=== PATIENT | male | born 1935 | race Caucasian/White ===

== ENCOUNTER 2022-03-01 09:26 | Emergency (ER) | payer MEDICARE, BC, SELFPAY ==
[2022-03-01 09:32] VITALS: BP 179/83; PULSE 58; RESP 18; TEMP 36.6; O2SAT 99; BMI 18.0
--- NOTE | 2022-03-01 09:59 | CRLHL7_ITS ---
For Patients: As a result of the Century Cures Act, medical imaging exams and procedure reports are released immediately into your electronic medical record. You may view this report before your referring provider. If you have questions, please contact your health care provider. INDICATION: Headache, speech issues. TECHNIQUE: Head CT without contrast. COMPARISON: CT head 01/04/2020. FINDINGS: CSF spaces: Within normal limits for age. Brain parenchyma and extra-axial spaces: There are nonspecific low attenuation white matter changes consistent with chronic microvascular disease. No sign of mass, hemorrhage, or midline shift. Calcification in the bilateral intracranial carotid arteries. Skull base and calvarium: The visualized paranasal sinuses and mastoid air cells demonstrate no acute or significant findings. The visualized orbits are grossly unremarkable. No skull fractures. IMPRESSION: No acute or significant findings. Please note that all CT scans at this facility use dose modulation, iterative reconstruction, and/or weight-based dosing when appropriate to reduce radiation dose to as low as reasonably achievable. Dictated by Emiliano Brito MD @ 03/01/2022 10:27:52 AM (Electronically Signed)
--- NOTE | 2022-03-01 10:39 | ED.NEUROSD ---
HPI - Neuro Symptoms/Deficit General Date Seen: 03/01/22 Chief Complaint: Neuro Symptoms/Altered Deficit Stated Complaint: Stroke-like symptoms, high blood pressure Time Seen by Provider: 03/01/22 09:46 Source: patient and family Mode of arrival: ambulatory Limitations: no limitations History of Present Illness HPI Narrative: Patient is a very nice 86-year-old gentleman who presents here for evaluation of an episode that occurred yesterday. Proximally 1:30 in the afternoon he was speaking with his son, he had trouble forming words, and almost sound like he was garbled in his speech. This lasted for approximately 15-20 minutes, and then resolved. He had no headache associated with this at the time, numbness tingling or weakness. He was by himself so has no idea if he had any facial features such as weakness. Last night he did have a bit of an upset stomach which is not uncharacteristic for him. He did not vomit and was only slightly nauseous. He also had a bifrontal headache which also since he fell a few years ago on the ice comes up from time to time. His daughter came to see him today to told him she should take him to the ER as he is here now. He feels asymptomatic and has no current complaints. No previous history of stroke/TIAs. Does have a history of weight loss stemming last year so. His physician is aware of it and seems to be more of a nutritional deficit as he is highly aware of any preservatives he takes. No formal history of cancer, Timing confirmed by: family member History of same: No Severity: mild Relieving factors: none Exacerbating factors: none Context: sudden onset Associated symptoms: denies other symptoms Treatments Prior to Arrival: none Related Data Home Medications Medication Instructions Recorded Confirmed lisinopril 20 mg tablet mg 03/01/22 Allergies Allergy/AdvReac Type Severity Reaction Status Date / Time No Known Drug Allergies Allergy Verified 03/01/22 09:31 Review of Systems Status of ROS: Reports: 10 or more systems reviewed and unremarkable except as noted in History and below PFSH PFS Social History Smoking Status: Former smoker What tobacco products do you use: cigarettes Smoking quit date/years: >15 years ago Do you use any of these nicotine containing products: None Second hand tobacco smoke exposure: No How often do you have a drink containing alcohol: never How often do you have six or more drinks on one occasion: Never AUDIT-C Alcohol total score: 0 Non-prescribed substance use: denies use service: No Exam Narrative: Exam Narrative: Patient is alert and oriented x3 in no apparent distress speaking to me normally very thin gentleman. His pupils were equal round reactive to light there is no evidence of nystagmus, visual del valle are normal on testing, cranial nerves 3-12 are normal with no obvious weakness of his face and he is able to whistle. His TMs are normal, mouth opening is normal, there is no lymphadenopathy anterior posterior chains and he has no carotid bruits notable with good upstrokes. He is flat, neck shows no meningismus, and range of motion is excellent. No evidence of any falls bruising or swelling along the head region. His chest is good air entry bilaterally with no wheezing crackles noted heart sounds are normal no clicks murmurs or gallops his abdomen is soft and scaphoid there is no guarding no past splenomegaly. He moves all extremities independently and well find more moves fingers nose testing are normal he is right-hand dominant. I visualized his gait pattern which seems normal. He is however what I would describe is gaunt. Const: Vital Signs, click to edit/add: Vital Signs - 24 hr 03/01/22 09:32 Temperature 97.8 F Pulse Rate [Right Pulse Oximeter] 58 L Respiratory Rate 18 Blood Pressure [Ri ght Upper Arm] 179/83 H Pulse Oximetry 99 Documenting provider has reviewed patient's vital signs: yes Course Course Hospital Course: I discussed with the patient that his CT scan showed no acute findings in also his laboratory work came back good. I do believe that he likely had but we would describe as a TIA or mini-stroke. She should take aspirin 81 mg a day. Follow-up with primary care and consideration of further testing such as carotid ultrasounds an echo. We do not need to admit him today based on the fact he is back to baseline. I also think there is a nutritional component also as he is very cachectic and encouraged him to think about seeing a dietitian. His daughter was in agreement with this. Vital Signs Vital signs: Initial Vital Signs Temperature 97.8 F 03/01/22 09:32 Temperature Source Temporal Artery Scan 03/01/22 09:32 Pulse Rate 58 L 03/01/22 09:32 Respiratory Rate 18 03/01/22 09:32 Blood Pressure 179/83 H 03/01/22 09:32 Blood Pressure Mean 115 03/01/22 09:32 Blood Pressure Position Sitting 03/01/22 09:32 Pulse Oximetry 99 03/01/22 09:32 Oxygen Delivery Method 03/01/22 09:32 Vital Signs Temperature 97.8 F 03/01/22 09:32 Pulse Rate 58 L 03/01/22 09:32 Respiratory Rate 18 03/01/22 09:32 Blood Pressure 179/83 H 03/01/22 09:32 Pulse Oximetry 99 03/01/22 09:32 Temperature 97.8 F 03/01/22 09:32 Pulse Rate 58 L 03/01/22 09:32 Respiratory Rate 18 03/01/22 09:32 Blood Pressure 179/83 H 03/01/22 09:32 Pulse Oximetry 99 03/01/22 09:32 MDM - Neuro Symptoms/Deficit MDM Narrative Medical decision making narrative: Life-threatening differential diagnosis considered include stroke, coronary artery disease, pneumonia, and heart failure. Other differential diagnosis include but are not limited to electrolyte imbalances, anemia, medication reactions, and urinary tract infection I discussed with him in his daughter Shama, she do a CT EKG and do further workup for this. I wonder if this is more like a mini strokes type situation such as a TIA. I am reassured that he is back to baseline at this point. They were comfortable with this plan suggestion. Medical Records Attestation: I reviewed the patient's medical records. Lab Data Labs: Lab Results 03/01/22 03/01/22 03/01/22 Range/Units 10:40 10:40 10:40 WBC 4.44 L (4.50-11.00) K/uL RBC 4.54 (4.30-5.90) m/uL Hgb 13.8 (13.5-17.5) gm/dL Hct 42.2 (37.0-53.0) % MCV 93 (80-100) fL MCH 30 (26-34) pg MCHC 33 (32-36) gm/dL RDW Coeff of Adrian 12.7 (11.5-15.5) % Plt Count 190 (140-440) K/uL Neut % (Auto) 69.5 (42.0-72.0) % Lymph % (Auto) 23.4 (20-44) % [place] % (Auto) 6.5 (0.0-11.0) % Eos % (Auto) 0.2 (0.0-7.0) % Baso % (Auto) 0.2 (0.0-3.0) % Neut # (Auto) 3.10 (1.7-7.0) K/uL Lymph # (Auto) 1.00 (0.90-2.90) K/uL [place] # (Auto) 0.30 (0.00-0.90) K/UL Eos # (Auto) 0.00 (0.00-0.50) K/uL Baso # (Auto) 0.00 (0.00-0.30) K/uL Abs Immat Gran (auto) 0.01 (0.00-0.30) K/uL Sodium 139 (135-149) mmol/L Potassium 4.2 (3.6-5.1) mmol/L Chloride 100 (96-114) mmol/L Carbon Dioxide 35 H (20-32) mmol/L BUN 24 (7-30) mg/dL Creatinine 1.0 (0.5-1.5) mg/dL Estimated Creat Clear 39.85 Estimated GFR 74 ml/min Glucose 124 H (60-115) mg/dL Calcium 8.8 (8.4-10.6) mg/dL POC Glucose 115 (60-115) mg/dl POC Troponin I (0.01-0.04) ng/ml 03/01/22 03/01/22 Range/Units 10:40 11:55 WBC (4.50-11.00) K/uL RBC (4.30-5.90) m/uL Hgb (13.5-17.5) gm/dL Hct (37.0-53.0) % MCV (80-100) fL MCH (26-34) pg MCHC (32-36) gm/dL RDW Coeff of Adrian (11.5-15.5) % Plt Count (140-440) K/uL Neut % (Auto) (42.0-72.0) % Lymph % (Auto) (20-44) % [place] % (Auto) (0.0-11.0) % Eos % (Auto) (0.0-7.0) % Baso % (Auto) (0.0-3.0) % Neut # (Auto) (1.7-7.0) K/uL Lymph # (Auto) (0.90-2.90) K/uL [place] # (Auto) (0.00-0.90) K/UL Eos # (Auto) (0.00-0.50) K/uL Baso # (Auto) (0.00-0.30) K/uL Abs Immat Gran (auto) (0.00-0.30) K/uL Sodium (135-149) mmol/L Potassium (3.6-5.1) mmol/L Chloride (96-114) mmol/L Carbon Dioxide (20-32) mmol/L BUN (7-30) mg/dL Creatinine (0.5-1.5) mg/dL Estimated Creat Clear Estimated GFR ml/min Glucose (60-115) mg/dL Calcium (8.4-10.6) mg/dL POC Glucose (60-115) mg/dl POC Troponin I 0.02 0.00 L (0.01-0.04) ng/ml Imaging Data CT scan - head: My impression: negative head CT, per my protocol Radiologist's impression: Patient: [address] Facility:?[facility] Patient ID:?[id number] Site Patient ID:?[id number]. Site :?[id number] Study:?CT Head W/O-03/01/2022 10:15:21 AM Ordering Physician:Clifton Charlton Final Report: INDICATION: Headache, speech issues. TECHNIQUE: Head CT without contrast. COMPARISON: CT head 01/04/2020. FINDINGS: CSF spaces: Within normal limits for age. Brain parenchyma and extra-axial spaces: There are nonspecific low attenuation white matter changes consistent with chronic microvascular disease. No sign of mass, hemorrhage, or midline shift. Calcification in the bilateral intracranial carotid arteries. Skull base and calvarium: The visualized paranasal sinuses and mastoid air cells demonstrate no acute or significant findings. The visualized orbits are grossly unremarkable. No skull fractures. IMPRESSION: No acute or significant findings. Please note that all CT scans at this facility use dose modulation, iterative reconstruction, and/or weight-based dosing when appropriate to reduce radiation dose to as low as reasonably achievable. Dictated by Emiliano Brito MD @ 03/01/2022 10:27:52 AM (Electronic Signature) ECG Data Attestation: I personally reviewed and interpreted this ECG as follows: ECG interpretation date: 03/01/22 ECG interpretation time: 10:45 Prior ECG tracings: available for review Interpretation: Review of EKG for Mr. Hernandez shows sinus rhythm. Right bundle branch configuration, sinus bradycardia ventricular rate of [address] wave changes. No change from previous Discharge Plan Discharge Clinical Impression: Transient cerebral ischemia Patient Disposition: Home w/ Parent or Adult Condition: Stable Instructions: Transient Ischemic Attack (ED) Additional Instructions: Home rest and to take Aspirin 81 mg of aspirin a day. Follow up with primary care for check on blood pressure and also further workup this should be done in the next week . Activity Level: No Restrictions Prescriptions: No Action lisinopril 20 mg tablet 0RF Label Comments: TAKE ONE TABLET BY MOUTH DAILY Follow Up/Referrals: Nickie Pardo PA-C [Primary Care Provider] - Stand Alone Forms: [facility] Info Instructions
[2022-03-01 10:42] VITALS: BP 152/76; PULSE 53; RESP 19; O2SAT 98
[2022-03-01 11:00] VITALS: BP 143/80; PULSE 54; RESP 15; O2SAT 99
[2022-03-01 11:00] LABS: Basophils Percent Auto 0.2 % (0.0-3.0); Eosinophils Percent Auto 0.2 % (0.0-7.0); Hematocrit 42.2 % (37.0-53.0); Hemoglobin* 13.8 gm/dL (13.5-17.5); Immature Granulocytes Abs Auto 0.01 K/uL (0.00-0.30); Lymphocytes Percent Auto 23.4 % (20-44); Mean Corpuscular HGB Conc 33 gm/dL (32-36); Mean Corpuscular Hemoglobin 30 pg (26-34); Mean Corpuscular Volume 93 fL (80-100); Monocytes Percent Auto 6.5 % (0.0-11.0); Neutrophils Percent Auto 69.5 % (42.0-72.0); Platelet Count* 190 K/uL (140-440); RDW Coefficient of Variation % 12.7 % (11.5-15.5); Red Blood Count 4.54 m/uL (4.30-5.90); White Blood Count* 4.44 K/uL (4.50-11.00)
[2022-03-01 11:01] LABS: Glucose, Point-of-Care* 115 mg/dl (60-115)
[2022-03-01 11:02] LABS: Troponin, Point-of-Care* 0.02 ng/ml (0.01-0.04)
[2022-03-01 11:04] LABS: Slide Review Reflex No
[2022-03-01 11:17] LABS: Chloride* 100 mmol/L (96-114); Sodium* 139 mmol/L (135-149)
[2022-03-01 11:18] LABS: Potassium* 4.2 mmol/L (3.6-5.1)
[2022-03-01 11:20] LABS: Est. Creatinine Clearance* 39.85; Estimated Glomerular Filt Rate 74 ml/min
[2022-03-01 11:21] LABS: Blood Urea Nitrogen* 24 mg/dL (7-30); Calcium* 8.8 mg/dL (8.4-10.6); Carbon Dioxide* 35 mmol/L (20-32); Glucose* 124 mg/dL (60-115)
[2022-03-01 11:30] VITALS: BP 163/80; RESP 15; O2SAT 98
[2022-03-01 12:00] VITALS: BP 159/84; BP 162/88; PULSE 52; PULSE 53; RESP 15; O2SAT 98; O2SAT 99
[2022-03-01] MEDS: ASPIRIN 81 MG TAB.CHEW PO (12:46)
== END 2022-03-01 12:55 | disposition home or self-care (01) ==
PROVIDERS: Emergency Provider Family Medicine; PCP Physician Assistant Medical
DX: G45.9 Transient cerebral ischemic attack, unspecified (principal)
CPT/HCPCS: 36415; 70450; 80048; 82947; 84484; 85025; 93005; 99285; A9270

== ENCOUNTER 2022-09-07 10:28 | Outpatient (CLI) | payer MEDICARE, BC, SELFPAY ==
[2022-09-07 16:51] LABS: Albumin* 3.8 g/dL (3.3-5.0)
[2022-09-07 16:52] LABS: Chloride* 103 mmol/L (96-114); Potassium* 5.2 mmol/L (3.6-5.1); Sodium* 141 mmol/L (135-149)
[2022-09-07 16:54] LABS: Bilirubin Total* 0.7 mg/dL (0.1-1.5); Carbon Dioxide* 35 mmol/L (20-32); Cholesterol* 156 mg/dL (90-199); Creatinine* 0.9 mg/dL (0.5-1.5); Estimated Glomerular Filt Rate 83 ml/min
[2022-09-07 16:55] LABS: Alanine Aminotransferase* 21 U/L (4-50); Alkaline Phosphatase* 68 U/L (40-150); Aspartate Amino Transferase* 26 U/L (12-35); Blood Urea Nitrogen* 23 mg/dL (7-30); Calcium* 9.3 mg/dL (8.4-10.6); Glucose* 94 mg/dL (60-115); HDL Cholesterol* 57 mg/dL (>=40); LDL Cholesterol Calculated 88 mg/dL (<100); Total Protein* 6.8 g/dL (6.0-8.3); Triglycerides* 57 mg/dL (40-149)
== END 2022-09-07 10:29 | disposition home or self-care (01) ==
PROVIDERS: PCP Physician Assistant Medical; Visit Provider Physician Assistant Medical
DX: Z00.00 Encounter for general adult medical examination without abnormal findings (principal); R79.9 Abnormal finding of blood chemistry, unspecified; D64.9 Anemia, unspecified; I10 Essential (primary) hypertension; R47.81 Slurred speech; Z13.6 Encounter for screening for cardiovascular disorders
CPT/HCPCS: 80053; 80061; 84443

== ENCOUNTER 2024-02-06 09:07 | Emergency (ER) | payer MEDICARE, BC, SELFPAY ==
[2024-02-06 09:15] VITALS: BP 178/88; PULSE 83; RESP 18; TEMP 36.8; O2SAT 96; BMI 19.4
--- NOTE | 2024-02-06 09:31 | CRLHL7_ITS ---
For Patients: As a result of the Century Cures Act, medical imaging exams and procedure reports are released immediately into your electronic medical record. You may view this report before your referring provider. If you have questions, please contact your health care provider. Indication: Possible constipation Technique: Supine and upright views of the abdomen. Comparison: None. Findings: Gas-filled loop of colon is seen beneath the right hemidiaphragm. Nonobstructive bowel gas pattern. No large pneumoperitoneum. Visualized lung bases are clear. Moderate stool burden is seen in the rectum. Moderate degenerative changes of the visualized spine. Mild degenerative changes of the bilateral hips. Impression: Nonobstructive bowel gas pattern. Moderate stool burden is seen in the rectum. Dictated by Ricky Stafford MD @ 02/06/2024 9:58:13 AM (Electronically Signed)
--- NOTE | 2024-02-06 10:08 | ED_ITS ---
HPI - General Adult General Chief complaint: Constipation Stated complaint: constipated Time Seen by Provider: 02/06/24 09:17 Source: patient and family Mode of arrival: ambulatory Limitations: no limitations History of Present Illness HPI narrative: Patient is an 88-year-old male who is here for evaluation of presumed constipation. He says his problem started a little over a week ago when he was at the dentist and accidentally swallowed some topical anesthetic. Since then he says he has not been able to have a bowel movement. This has not been a problem for him previously. He did try MiraLax for a couple of days, did not have any results with that, then tried Dulcolax but again has not been able to have a bowel movement. He does not have any abdominal pain right now, but says sometimes when he is trying to have a bowel movement he does get some cramping. He has not had any nausea or vomiting, but appetite has been decreased. No fevers. Had some difficulty urinating this morning. Related Data Home Medications ?Medication ?Instructions ?Recorded ?Confirmed cholecalciferol (vitamin D3) 50 2,000 unit PO DAILY 03/09/22 09/07/22 mcg (2,000 unit) tablet fluticasone propionate 50 1 intranasal BID 03/09/22 09/07/22 mcg/actuation nasal spray,suspension eye drops ophthalmic (eye) 09/07/22 09/07/22 turmeric (bulk) miscellaneous 02/06/24 Previous Rx's ?Medication ?Instructions ?Recorded lisinopril 10 mg tablet 10 mg PO QDAY #90 tabs 09/07/22 Allergies Allergy/AdvReac Type Severity Reaction Status Date / Time No Known Drug Allergies Allergy Verified 09/07/22 10:35 Review of Systems Status of ROS: Reports: 6 or more systems reviewed and unremarkable except as noted in History and below [facility] Medical History Weight loss ?R63.4 - Abnormal weight loss (ICD-10) Slurred speech ?R47.81 - Slurred speech (ICD-10) Umbilical hernia (07/15/09) ?K42.9 - Umbilical hernia without obstruction or gangrene (ICD-10) Gastrointestinal hemorrhage (09/2020) ?K92.2 - Gastrointestinal hemorrhage, unspecified (ICD-10) Concussion (2019) ?S06.0X9A - Concussion with loss of consciousness of unspecified duration, initial encounter (ICD-10) Surgical History History of tonsillectomy ?Z90.89 - Acquired absence of other organs (ICD-10) History of appendectomy ?Z90.49 - Acquired absence of other specified parts of digestive tract (ICD-10) Social History Smoking Status: Former smoker What tobacco products do you use: cigarettes Smoking quit date/years: >15 years ago Do you use any of these nicotine containing products: None Second hand tobacco smoke exposure: No How often do you have a drink containing alcohol: never How often do you have six or more drinks on one occasion: Never AUDIT-C Alcohol total score: 0 Non-prescribed substance use: denies use Little interest or pleasure in doing things: not at all Feeling down, depressed, or hopeless: not at all service: No Exam Narrative: Exam Narrative: Vital signs as noted above. In general, an alert, nontoxic elderly male. Thin. Head: Normocephalic, atraumatic. Eyes: Pupils are equal reactive. Extraocular movements are full. Conjunctivae are normal. ENT: Mucous membranes are moist. Neck: Supple without lymphadenopathy. Heart: Regular rate and rhythm. No murmur or rub. Lungs: Clear bilaterally. No increased work of breathing, crackles or wheezes. Abdomen: Soft and nontender. No organomegaly. No masses. Rectal: No obvious masses. Large amount of impacted soft stool. Extremities: Well perfused. No edema. No calf tenderness. Pulses intact. Neurologic: Patient is alert and oriented to person and place. Speech is fluent. Face is symmetric. Moves all extremities equally. Affect: Normal. Skin: Warm and dry. Well perfused. Const: Vital Signs, click to edit/add: Vital Signs - 24 hr 02/06/24 09:15 Temperature 98.2 F Pulse Rate [Pulse Oximeter] 83 Respiratory Rate 18 Blood Pressure [Ri ght Upper Arm] 178/88 H Pulse Oximetry 96 Oxygen Delivery Me thod Room Air Documenting provider has reviewed patient's vital signs: yes Course Course ED Course: Abdominal flat and upright does not show evidence of obstruction. He does have a moderate amount of fecal retention in the rectum, not a significant stool burden otherwise. Enema was ordered with good result. He feels improved. Stable for discharge home, I do not think he needs additional workup today based on his symptoms and benign abdominal exam, improvement after enema. Return if symptoms worsen, he has significant abdominal or rectal pain, fevers, vomiting etcetera. Recommend daily MiraLax. Vital Signs Vital signs: Initial Vital Signs Temperature 98.2 F 02/06/24 09:15 Temperature Source Temporal Artery Scan 02/06/24 09:15 Pulse Rate 83 02/06/24 09:15 Respiratory Rate 18 02/06/24 09:15 Blood Pressure 178/88 H 02/06/24 09:15 Blood Pressure Mean 118 H 02/06/24 09:15 Pulse Oximetry 96 02/06/24 09:15 Oxygen Delivery Method Room Air 02/06/24 09:15 Vital Signs Temperature 98.2 F 02/06/24 09:15 Pulse Rate 83 02/06/24 09:15 Respiratory Rate 18 02/06/24 09:15 Blood Pressure 178/88 H 02/06/24 09:15 Pulse Oximetry 96 02/06/24 09:15 Oxygen Delivery Method Room Air 02/06/24 09:15 Temperature 98.2 F 02/06/24 09:15 Pulse Rate 83 02/06/24 09:15 Respiratory Rate 18 02/06/24 09:15 Blood Pressure 178/88 H 02/06/24 09:15 Pulse Oximetry 96 02/06/24 09:15 Oxygen Delivery Method Room Air 02/06/24 09:15 Discharge Plan Discharge Clinical Impression: Fecal impaction Patient Disposition: Home, Self-Care Condition: Improved Instructions: Fecal Impaction (ED) Additional Instructions: I would recommend daily MiraLax going forward, 1/2-1 full capful a day. This will help prevent recurrent impaction. Return for abdominal or rectal pain, vomiting, fever or other acute changes. Prescriptions: No Action eye drops ophthalmic (eye) lisinopril 10 mg tablet 10 mg PO QDAY Qty: 90 0RF Rx Instructions: take 1 tablet daily cholecalciferol (vitamin D3) 50 mcg (2,000 unit) tablet 2,000 unit PO DAILY fluticasone propionate 50 mcg/actuation spray,suspension 1 intranasal BID Rx Instructions: 1 spray each nostril twice daily turmeric (bulk) [Curcumin] miscellaneous Follow Up/Referrals: Nickie Pardo PA-C [Primary Care Provider] - Stand Alone Forms: [facility] Info Instructions
== END 2024-02-06 11:35 | disposition home or self-care (01) ==
PROVIDERS: Emergency Provider Emergency Medicine; PCP Physician Assistant Medical
DX: K59.00 Constipation, unspecified (principal)
CPT/HCPCS: 74019; 99283; 99284

== ENCOUNTER 2024-02-09 08:32 | Emergency (ER) | payer MEDICARE, BC, SELFPAY ==
[2024-02-09 08:38] VITALS: BP 169/91; PULSE 67; RESP 16; TEMP 36.1; O2SAT 97; BMI 19.4
--- NOTE | 2024-02-09 08:54 | CRLHL7_ITS ---
For Patients: As a result of the 21st Century Cures Act, medical imaging exams and procedure reports are released immediately into your electronic medical record. You may view this report before your referring provider. If you have questions, please contact your health care provider. INDICATION: Abdominal pain. COMPARISON: Radiographs 02/06/2024 TECHNIQUE: CT of the abdomen and pelvis with intravenous contrast. Multiplanar axial, coronal, and sagittal reformats were reconstructed. Contrast: 58 mL Isovue 370. FINDINGS: Lung bases: Small consolidation in the anteromedial right lower lobe. Mild atelectasis in the right lung base. There is a 5 millimeter nodule in the left lower lobe. Elevated right diaphragm. Liver: Normal. No mass. Gallbladder and bile ducts: Normal gallbladder. No bile duct dilation. Pancreas: Normal. Spleen: Normal. Adrenal glands: Normal. Kidneys: Normal renal size and position. Normal corticomedullary differentiation and enhancement. There are several bilateral renal cysts. There are a few small lesions on the left but are too small to definitely characterize but have a similar morphology and are probably also cysts. No calculi. There is mild bilateral pelviectasis. Urinary bladder: Mildly distended. Pelvis: No cyst or mass. Vessels: Atherosclerotic vascular calcifications. The infrarenal abdominal aorta measures 2.4 centimeters in maximum diameter, normal. Portal venous system is patent. Bowel: Significant circumferential rectal wall thickening and hyperemia. The appendix is not discretely seen. Large right-sided stool burden. Lymph nodes: No adenopathy. Peritoneum: No ascites or free air. Very little visceral fat. Abdominal wall: Very little subcutaneous fat. No bowel containing hernia. Bones: T10 superior endplate compression fracture with about 10 percent loss of height. L1 compression fracture with about 50 percent loss of height. L2 superior endplate compression fracture with up to 40 percent loss of height anteriorly. Multilevel advanced disc and facet degeneration in the lumbar spine. There is grade 1 anterolisthesis of L3 on L4 that appears degenerative. There is a right L5 pars defect with minimal grade 1 anterolisthesis of L5 on S1. No definitely acute fractures. No focal worrisome bone lesions. IMPRESSION: 1. Circumferential rectal wall thickening and hyperemia. Most consistent with proctitis. 2. Large right-sided stool burden. 3. Multilevel vertebral compression fractures of indeterminate acuity. 4. 5 millimeter nodule in the left lower lobe. Per the Fleischner society criteria, can consider a follow-up chest CT in 12 months for a high-risk patient. Please note that all CT scans at this facility use dose modulation, iterative reconstruction, and/or weight-based dosing when appropriate to reduce radiation dose to as low as reasonably achievable. Dictated by Anu Nichole MD @ 02/09/2024 10:12:11 AM (Electronically Signed)
--- NOTE | 2024-02-09 09:02 | ED.ABDPAIN ---
HPI - Abdominal Pain General Chief Complaint: Abdominal Pain Stated Complaint: Ulcer pain Time Seen by Provider: 02/09/24 08:49 History of Present Illness HPI narrative: Patient is a 88-year-old gentleman who comes in today with mid abdominal pain. He was in 3 days ago and had a fecal disimpaction. He states that he is still in stool softeners and that his bowels are moving but now he is having unremitting abdominal pain. Pain is mild 4/10 in intensity. He has no fevers no chills no dysuria no nausea no vomiting. Patient states that he has had ulcers in the past and this feels like ulcer pain to him but he has no blood in his stool. No other complaints are noted. Related Data Home Medications ?Medication ?Instructions ?Recorded ?Confirmed cholecalciferol (vitamin D3) 50 2,000 unit PO DAILY 03/09/22 09/07/22 mcg (2,000 unit) tablet fluticasone propionate 50 1 intranasal BID 03/09/22 09/07/22 mcg/actuation nasal spray,suspension eye drops ophthalmic (eye) 09/07/22 09/07/22 turmeric (bulk) miscellaneous 02/06/24 Previous Rx's ?Medication ?Instructions ?Recorded lisinopril 10 mg tablet 10 mg PO QDAY #90 tabs 09/07/22 Allergies Allergy/AdvReac Type Severity Reaction Status Date / Time No Known Drug Allergies Allergy Verified 09/07/22 10:35 Review of Systems Status of ROS Reports: 10 or more systems reviewed and unremarkable except as noted in History and below [facility] Medical History Weight loss ?R63.4 - Abnormal weight loss (ICD-10) Slurred speech ?R47.81 - Slurred speech (ICD-10) Umbilical hernia (07/15/09) ?K42.9 - Umbilical hernia without obstruction or gangrene (ICD-10) Gastrointestinal hemorrhage (09/2020) ?K92.2 - Gastrointestinal hemorrhage, unspecified (ICD-10) Concussion (2019) ?S06.0X9A - Concussion with loss of consciousness of unspecified duration, initial encounter (ICD-10) Surgical History History of tonsillectomy ?Z90.89 - Acquired absence of other organs (ICD-10) History of appendectomy ?Z90.49 - Acquired absence of other specified parts of digestive tract (ICD-10) Social History Smoking Status: Former smoker What tobacco products do you use: cigarettes Smoking quit date/years: >15 years ago Do you use any of these nicotine containing products: None Second hand tobacco smoke exposure: No How often do you have a drink containing alcohol: never How often do you have six or more drinks on one occasion: Never AUDIT-C Alcohol total score: 0 Non-prescribed substance use: denies use Little interest or pleasure in doing things: not at all Feeling down, depressed, or hopeless: not at all service: No Exam Narrative: Exam Narrative: EXAM GENERAL: Patient appears comfortable extremely thin and frail. EYES: No scleral icterus. LYMPH: No supraclavicular or cervical lymphadenopathy. SKIN: Visible skin seen during exam normal or with benign process only. EXT: No dependent lower extremity pedal edema. HEART: Regular rate and rhythm with no murmurs, rubs, or gallops. LUNGS: Clear to auscultation bilaterally with no crackles or wheezes. ABD: Soft, non tender, non distended. PSYCH: Good eye contact, speech is not pressured. Const: Vital Signs, click to edit/add: Vital Signs - 24 hr 02/09/24 08:38 Temperature 96.9 F L Pulse Rate [Pulse Oximeter] 67 Respiratory Rate 16 Blood Pressure [Ri ght Upper Arm] 169/91 H Pulse Oximetry 97 Course Course ED Course: We reviewed his previous workup and will begin today's workup with CT abdomen pelvis CBC CMP amylase UA. Vital Signs Vital signs: Initial Vital Signs Temperature 96.9 F L 02/09/24 08:38 Temperature Source Temporal Artery Scan 02/09/24 08:38 Pulse Rate 67 02/09/24 08:38 Pulse Rhythm Regular 02/09/24 08:38 Respiratory Rate 16 02/09/24 08:38 Blood Pressure 169/91 H 02/09/24 08:38 Blood Pressure Mean 117 H 02/09/24 08:38 Blood Pressure Position Sitting 02/09/24 08:38 Pulse Oximetry 97 02/09/24 08:38 Vital Signs Temperature 96.9 F L 02/09/24 08:38 Pulse Rate 67 02/09/24 08:38 Respiratory Rate 16 02/09/24 08:38 Blood Pressure 169/91 H 02/09/24 08:38 Pulse Oximetry 97 02/09/24 08:38 Temperature 96.9 F L 02/09/24 08:38 Pulse Rate 67 02/09/24 08:38 Respiratory Rate 16 02/09/24 08:38 Blood Pressure 169/91 H 02/09/24 08:38 Pulse Oximetry 97 02/09/24 08:38 MDM - Abdominal Pain MDM Narrative Medical decision making narrative: Patient presents with symptoms of dyspepsia. CT is reassuring and does have evidence of previous disimpaction with some proctitis. He is having normal bowel movements. His labs are reassuring. I did review his findings with him. He is in absolutely no distress. He is convinced that his primary doctor's trying to poison him which is very unlikely. He would like a new primary doctor and I did make those arrangements for him. At this time we did place him on Prilosec OTC 20 mg daily with primary care follow-up. Differential diagnosis includes but not limited to acute abdominal pain secondary to colitis diverticulitis peptic ulcer disease dyspepsia reflux cholecystitis. Lab Data Labs: Lab Results 02/09/24 02/09/24 Range/Units 09:15 09:20 WBC 4.13 L (4.50-11.00) K/uL RBC 4.17 L (4.30-5.90) m/uL Hgb 12.2 L (13.5-17.5) gm/dL Hct 37.9 (37.0-53.0) % MCV 91 (80-100) fL MCH 29 (26-34) pg MCHC 32 (32-36) gm/dL RDW Coeff of Adrian 13.2 (11.5-15.5) % Plt Count 274 (140-440) K/uL Neut % (Auto) 60.6 (42.0-72.0) % Lymph % (Auto) 28.3 (20-44) % [place] % (Auto) 10.4 (0.0-11.0) % Eos % (Auto) 0.2 (0.0-7.0) % Baso % (Auto) 0.5 (0.0-3.0) % Neut # (Auto) 2.50 (1.7-7.0) K/uL Lymph # (Auto) 1.20 (0.90-2.90) K/uL [place] # (Auto) 0.40 (0.00-0.90) K/UL Eos # (Auto) 0.00 (0.00-0.50) K/uL Baso # (Auto) 0.00 (0.00-0.30) K/uL Abs Immat Gran (auto) 0.00 (0.00-0.30) K/uL Imm/Tot Granulo (auto) 0.0 % Sodium 138 (135-149) mmol/L Potassium 3.3 L (3.6-5.1) mmol/L Chloride 103 (96-114) mmol/L Carbon Dioxide 30 (20-32) mmol/L Anion Gap 5 L (7-15) mEq/L BUN 18 (7-30) mg/dL Creatinine 0.8 (0.5-1.5) mg/dL Estimated Creat Clear 40.07 Estimated GFR 86 ml/min Glucose 120 H (60-115) mg/dL Calcium 8.5 (8.4-10.6) mg/dL Total Bilirubin 0.8 (0.1-1.5) mg/dL AST 36 H (12-35) U/L ALT 30 (4-50) U/L Alkaline Phosphatase 97 (40-150) U/L Total Protein 6.9 (6.0-8.3) g/dL Albumin 4.0 (3.3-5.0) g/dL POC Creatinine 1.0 (0.6-1.3) mg/dl Discharge Plan Discharge Clinical Impression: Abdominal pain Patient Disposition: Home, Self-Care Condition: Stable Instructions: Abdominal Pain (ED) Additional Instructions: Prilosec over the counter 20 mg in the morning daily Maalox as needed for breakthrough symptoms Follow up with your doctor within the next week. Activity Level: No Restrictions Discharge Diet: Regular Prescriptions: No Action eye drops ophthalmic (eye) lisinopril 10 mg tablet 10 mg PO QDAY Qty: 90 0RF Rx Instructions: take 1 tablet daily cholecalciferol (vitamin D3) 50 mcg (2,000 unit) tablet 2,000 unit PO DAILY fluticasone propionate 50 mcg/actuation spray,suspension 1 intranasal BID Rx Instructions: 1 spray each nostril twice daily turmeric (bulk) [Curcumin] miscellaneous Follow Up/Referrals: Nickie Pardo PA-C [Physician Pulling Machine Operator] - Stand Alone Forms: [employer] Info Instructions
[2024-02-09 09:25] LABS: Basophils Percent Auto 0.5 % (0.0-3.0); Eosinophils Percent Auto 0.2 % (0.0-7.0); Hematocrit 37.9 % (37.0-53.0); Hemoglobin* 12.2 gm/dL (13.5-17.5); Lymphocytes Percent Auto 28.3 % (20-44); Mean Corpuscular HGB Conc 32 gm/dL (32-36); Mean Corpuscular Hemoglobin 29 pg (26-34); Mean Corpuscular Volume 91 fL (80-100); Monocytes Percent Auto 10.4 % (0.0-11.0); Neutrophils Percent Auto 60.6 % (42.0-72.0); Platelet Count* 274 K/uL (140-440); RDW Coefficient of Variation % 13.2 % (11.5-15.5); Red Blood Count 4.17 m/uL (4.30-5.90); White Blood Count* 4.13 K/uL (4.50-11.00)
[2024-02-09 09:36] LABS: Chloride* 103 mmol/L (96-114)
[2024-02-09 09:37] LABS: Potassium* 3.3 mmol/L (3.6-5.1); Sodium* 138 mmol/L (135-149)
[2024-02-09 09:39] LABS: Alkaline Phosphatase* 97 U/L (40-150); Anion Gap 5 mEq/L (7-15); Aspartate Amino Transferase* 36 U/L (12-35); Bilirubin Total* 0.8 mg/dL (0.1-1.5); Blood Urea Nitrogen* 18 mg/dL (7-30); Carbon Dioxide* 30 mmol/L (20-32); Creatinine* 0.8 mg/dL (0.5-1.5); Est. Creatinine Clearance* 40.07; Estimated Glomerular Filt Rate 86 ml/min; Glucose* 120 mg/dL (60-115); Total Protein* 6.9 g/dL (6.0-8.3)
[2024-02-09 09:40] LABS: Alanine Aminotransferase* 30 U/L (4-50); Calcium* 8.5 mg/dL (8.4-10.6)
[2024-02-09 09:44] LABS: Slide Review Reflex No
[2024-02-09 11:08] LABS: Appearance Urine Clear (Clear); Bilirubin Urine Negative (Negative); Color Urine Yellow (Yellow); Glucose Urine Negative (Negative); Ketones Urine Negative (Negative); Specific Gravity Urine 1.015 (1.000-1.030)
[2024-02-09 11:09] LABS: Blood Urine Negative (Negative); Leukocyte Esterase Urine Trace (Negative); Nitrite Urine Negative (Negative); Protein Urine Negative (Negative)
[2024-02-09 11:21] LABS: RBC Urine 0-2 (0-2); Squamous Epithelial Cell Urine Few (None-Few); WBC Urine 0-2 (0-5)
[2024-02-09 11:22] LABS: Amorphous Sediment Urine Few
== END 2024-02-09 10:50 | disposition home or self-care (01) ==
PROVIDERS: Emergency Provider Internal Medicine
DX: J05.0 Acute obstructive laryngitis [croup] (principal)
CPT/HCPCS: 36415; 74177; 80053; 81001; 81003; 82565; 85025; 87086; 99283; 99284; Q9967

== ENCOUNTER 2024-05-31 12:20 | Emergency (ER) | payer MEDICARE, BC, SELFPAY ==
[2024-05-31 12:32] VITALS: BP 188/76; PULSE 78; RESP 18; TEMP 37.3; O2SAT 95; BMI 15.2
--- NOTE | 2024-05-31 13:25 | ED_ITS ---
HPI - General Adult General Date Seen: 05/31/24 Chief complaint: Abdominal Pain Stated complaint: abominal pain Time Seen by Provider: 05/31/24 13:09 History of Present Illness HPI narrative: 89 yo M with h/o an umbilical hernia repair perhaps more than 5 years ago with mesh placement. He has had swelling and pain in that area for the past couple of months. He has an appointment coming up with his primary care provider next week on June for thigh cyst, but cannot tolerate the discomfort anymore. Therefore he came to the ER. He is not having any nausea or vomiting. No trouble with urination. Bowel movements have been normal. The pain has been so uncomfortable and persistent at night that he is not able to sleep. Appetite is decreased. Per medical record he was seen in the ER 2 times in February with abdominal pain. He was seen on February 05 with possible constipation. Received an enema in the ER with BM and good improvement in pain. With recurrent pain came back to the ER on February 08. He had a workup that showed a white count of 4.1, hemoglobin 12.2, platelet count 274. Sodium 138, potassium 3.3, chloride 103, bicarb 30, BUN 18, creatinine 0.8, LFTs were normal with an AST of 36, ALT 30, total bilirubin 0.8. CT scan showed circumferential rectal wall thickening and hyperemia consistent with proctitis. Also a large right-sided stool burden. Multilevel compression fractures. The 5 mm left lower lobe pulmonary nodule. He was started on Prilosec OTC. He says he has been doing well since then. Bowel movements have been fairly regular. No further trouble with constipation. Even this week his bowel movements are regular, 4 but soft, brown. No bloody or black stools. No diarrhea. No nausea or vomiting. For the past couple months he has had poor appetite and early satiety says sometimes when he is eating a just gets full in can not eat anymore. For the past month or so he has had some pain in his periumbilical and suprapubic region. Says sometimes it feels like there is a spider up picking as claws into his abdomen. This has been getting worse over time. For the past couple of weeks he has also had some bad pain in the left upper quadrant radiating to his left flank. Pain has gotten to the point over the past few days that is just not tolerable and is keeping awake at night. He is not able to wait for his primary care follow-up. Therefore he came back to the ER today. Pain is not really particularly worse today than yesterday but it has just gotten bad over time. No fever. No vomiting. No bloody stools. Urination has been normal. No weight loss. No chest pain. No trouble breathing although sometimes when he breathes it makes his abdomen hurt more. Related Data Home Medications ?Medication ?Instructions ?Recorded ?Confirmed cholecalciferol (vitamin D3) 50 2,000 unit PO DAILY 03/09/22 09/07/22 mcg (2,000 unit) tablet fluticasone propionate 50 1 intranasal BID 03/09/22 09/07/22 mcg/actuation nasal spray,suspension eye drops ophthalmic (eye) 09/07/22 09/07/22 turmeric (bulk) miscellaneous 02/06/24 Previous Rx's ?Medication ?Instructions ?Recorded lisinopril 10 mg tablet 10 mg PO QDAY #90 tabs 09/07/22 Allergies Allergy/AdvReac Type Severity Reaction Status Date / Time No Known Drug Allergies Allergy Verified 05/31/24 15:32 [facility] Medical History Weight loss ?R63.4 - Abnormal weight loss (ICD-10) Slurred speech ?R47.81 - Slurred speech (ICD-10) Umbilical hernia (07/15/09) ?K42.9 - Umbilical hernia without obstruction or gangrene (ICD-10) Gastrointestinal hemorrhage (09/2020) ?K92.2 - Gastrointestinal hemorrhage, unspecified (ICD-10) Concussion (2019) ?S06.0X9A - Concussion with loss of consciousness of unspecified duration, initial encounter (ICD-10) Surgical History History of tonsillectomy ?Z90.89 - Acquired absence of other organs (ICD-10) History of appendectomy ?Z90.49 - Acquired absence of other specified parts of digestive tract (ICD- 10) Social History Smoking Status: Former smoker What tobacco products do you use: cigarettes Smoking quit date/years: >15 years ago Do you use any of these nicotine containing products: None Second hand tobacco smoke exposure: No How often do you have a drink containing alcohol: never How often do you have six or more drinks on one occasion: Never AUDIT-C Alcohol total score: 0 Non-prescribed substance use: denies use Little interest or pleasure in doing things: not at all Feeling down, depressed, or hopeless: not at all service: No Exam Narrative: Exam Narrative: Constitutional: Appears well-developed and fairly thin and wirey but not cachectic. Alert. Conversant. Non toxic. HENT: Head: Atraumatic. Nose: Nose normal. Mouth/Throat: Oral mucosa is clear and moist. no trismus. Pharynx normal. Tonsils symmetric. No tonsillar enlargement, erythema, or exudate. Eyes: Conjunctivae normal. EOM normal. Pupils equal, round, and reactive to light. No scleral icterus. Neck: Normal range of motion. Neck supple. No tracheal deviation present. Cardiovascular: Normal rate, regular rhythm. No gallop. No friction rub. No murmur heard. Symmetric radial artery pulses Pulmonary/Chest: Effort normal. No stridor. No respiratory distress. Exam is somewhat limited because he will not stop talking during lung auscultation (even with coaching) to get a good listen to his left lung field but I do not hear any obvious wheezes rales, or rhonchi rhonchi Abdominal: Soft. Bowel sounds normal. No distension. No mass. Marked left upper quadrant and left tenderness. Also some periumbilical tenderness. I do not feel any periumbilical mass or hernia. He also has fairly significant left CVA tenderness and pain in the left lower rib cage. No rebound. No guarding. Musculoskeletal: RUE: Normal range of motion. No tenderness. No deformity LUE: Normal range of motion. No tenderness. No deformity RLE: Normal range of motion. No edema. No tenderness. No deformity LLE: Normal range of motion. No edema. No tenderness. No deformity Neurological: Alert and oriented to person, place, and time. Normal strength. CN II-VII intact. No sensory deficit. GCS eye subscore is 4. GCS verbal subscore is 5. GCS motor subscore is 6. Normal coordination Skin: Skin is warm and dry. No rash noted. No pallor. Normal capillary refill. Psychiatric: Normal mood. Normal affect. Const: Vital Signs, click to edit/add: Vital Signs - 24 hr 05/31/24 12:32 05/31/24 16:33 Temperature 99.1 F Pulse Rate [Pulse Oximeter] 78 72 Respiratory Rate 18 Blood Pressure [Ri ght Upper Arm] 188/76 H 170/111 H Pulse Oximetry 95 95 Oxygen Delivery Me thod Room Air Room Air Course Course ED Course: Multiple rechecks. Ultimately was feeling better after pain meds and IV fluids. Making adequate amounts of urine. Reevaluation(s) Reevaluation #1: Discussed with surgery, Dr. Key after initial CT scan showed nonspecific enteritis and mesenteric edema a a. She would agree of plan to get a follow-up CT angio to make sure there is no signs of any narrowing or occlusion of the SMA. If he has ongoing or worsening pain, she would recommend consultation with IR to consider further evaluation for mesenteric ischemia. Reevaluation #2: Recheck-patient reporting improved pain. He and his son are comfortable with the plan to discharge her home for a careful outpatient monitoring. Vital Signs Vital signs: Initial Vital Signs Temperature 99.1 F 05/31/24 12:32 Temperature Source Temporal Artery Scan 05/31/24 12:32 Pulse Rate 78 05/31/24 12:32 Pulse Rhythm Regular 05/31/24 12:32 Respiratory Rate 18 05/31/24 12:32 Blood Pressure 188/76 H 05/31/24 12:32 Blood Pressure Mean 113 H 05/31/24 12:32 Blood Pressure Position Sitting 05/31/24 12:32 Pulse Oximetry 95 05/31/24 12:32 Oxygen Delivery Method Room Air 05/31/24 12:32 Vital Signs Temperature 99.1 F 05/31/24 12:32 Pulse Rate 78 05/31/24 12:32 Respiratory Rate 18 05/31/24 12:32 Blood Pressure 188/76 H 05/31/24 12:32 Pulse Oximetry 95 05/31/24 12:32 Oxygen Delivery Method Room Air 05/31/24 12:32 Temperature 99.1 F 05/31/24 12:32 Pulse Rate 72 05/31/24 16:33 Respiratory Rate 18 05/31/24 12:32 Blood Pressure 170/111 H 05/31/24 16:33 Pulse Oximetry 95 05/31/24 16:33 Oxygen Delivery Method Room Air 05/31/24 16:33 Medications Administered Medications: Discontinued Medications Generic Name Dose Route Start Last Admin Trade Name Giselle PRN Reason Stop Dose Admin Lactated Ringer's 500 mls @ 500 mls/hr 05/31/24 17:02 05/31/24 19:39 Lactated Ringers 500 Ml IV 05/31/24 18:01 Infused .Q1H ONE Infusion Sodium Chloride 500 mls @ 500 mls/hr 05/31/24 17:18 05/31/24 17:36 0.9 % Sodium Chloride 500 Ml IV 05/31/24 18:17 Not Given .Q1H ONE Ondansetron HCl 4 mg 05/31/24 13:46 05/31/24 17:36 Ondansetron 2 Mg/Ml Inj IVP 05/31/24 13:47 Not Given ONCE ONE Medical Decision Making MDM Narrative Medical decision making narrative: Presented to the Emergency Department with a couple of months of periumbilical and generalized abdominal pain, getting worse over the past several days.. The differential diagnosis of abdominal pain includes: Appendicitis, Bowel Obstruction, Ulcer, Ischemia, Cholecystitis, Diverticulitis, Pancreatitis, UTI, kidney stone, Enteritis/Colitis, amongst many other etiologies. Laboratory testing does not reveal a cause for the patient's pain. He is also having some pain and up into his left lower ribs and left lower chest. CT chest is obtained and shows no evidence for PE, pneumonia, pleural effusion, rib fracture. He has had a previous pulmonary nodule (noted on a CT scan abdomen in February in the left lower lobe) that is not visualized on the chest CT today. Initial abdomen/pelvis CT imaging initially shows Imaging is noted to show nonspecific enteritis of loops of small bowel in the right abdomen as well as some edema in the mesentery. Unclear etiology. Discussed with surgery. She recommends CT angiogram of the abdomen pelvis to look for possible mesenteric ischemia. CTA is obtained and shows patent SMA in other vessels. Lactic acid is normal.. The exact etiology of the abdominal pain is not clear at this time. Overall pain is improved after meds given here in the ER. No life threatening cause or need for emergent surgery or hospital admission is detected today. The patient was advised that if symptoms do not completely resolve within another 24-40 hours re-evaluation with primary care or return to the ED is indicated. The patient also understands that if they worsen, they should return to the ER right away. I discussed the uncertainty about the diagnosis and answered the patient's questions. Abdominal pain return precautions discussed. Instymeds prescriptions for [place], Zofran. Lab Data Labs: Lab Results 05/31/24 05/31/24 Range/Units 13:57 Unknown WBC 5.38 (4.50-11.00) K/uL RBC 3.74 L (4.30-5.90) m/uL Hgb 11.3 L (13.5-17.5) gm/dL Hct 35.3 L (37.0-53.0) % MCV 94 (80-100) fL MCH 30 (26-34) pg MCHC 32 (32-36) gm/dL RDW Coeff of Adrian 13.5 (11.5-15.5) % Plt Count 218 (140-440) K/uL Neut % (Auto) 72.1 H (42.0-72.0) % Lymph % (Auto) 18.0 L (20-44) % [place] % (Auto) 9.1 (0.0-11.0) % Eos % (Auto) 0.2 (0.0-7.0) % Baso % (Auto) 0.4 (0.0-3.0) % Neut # (Auto) 3.90 (1.7-7.0) K/uL Lymph # (Auto) 1.00 (0.90-2.90) K/uL [place] # (Auto) 0.50 (0.00-0.90) K/UL Eos # (Auto) 0.01 (0.00-0.50) K/uL Baso # (Auto) 0.02 (0.00-0.30) K/uL Abs Immat Gran (auto) 0.01 (0.00-0.30) K/uL Imm/Tot Granulo (auto) 0.2 % Sodium 135 (135-149) mmol/L Potassium 3.9 (3.6-5.1) mmol/L Chloride 99 (96-114) mmol/L Carbon Dioxide 31 (20-32) mmol/L Anion Gap 5 L (7-15) mEq/L BUN 35 H (7-30) mg/dL Creatinine 0.7 (0.5-1.5) mg/dL Estimated Creat Clear 32.76 Estimated GFR 89 ml/min Glucose 86 (60-115) mg/dL Lactate 0.9 (0.5-1.9) mmol/L Calcium 8.7 (8.4-10.6) mg/dL Total Bilirubin 0.4 (0.1-1.5) mg/dL AST 20 (12-35) U/L ALT 23 (4-50) U/L Alkaline Phosphatase 97 (40-150) U/L Total Protein 6.2 (6.0-8.3) g/dL Albumin 3.5 (3.3-5.0) g/dL Lipase 262 (23-300) U/L Urine Color Yellow (Yellow) Urine Appearance Clear (Clear) Urine pH 6.5 (5.0-8.5) Ur Specific [place] 1.015 (1.000-1.030) Urine Protein Negative (Negative) Urine Glucose (UA) Negative (Negative) Urine Ketones Negative (Negative) Urine Blood Trace-intact A (Negative) Urine Nitrite Negative (Negative) Urine Bilirubin Negative (Negative) Urine Urobilinogen 0.2 (0.2-1.0) Ur Leukocyte Esterase Negative (Negative) Urine RBC 0-2 (0-2) Urine WBC 0-2 (0-5) Ur Squamous Epith Cells None (None-Few) Urine Bacteria None (None) Imaging Data CT scan - chest: Attestation: I have reviewed the pertinent imaging results. Radiologist's impression: FINDINGS: Heart and vasculature: Contrast opacification of the pulmonary arterial tree is adequate. No sign of pulmonary embolism. Cardiomegaly thoracic aorta and pulmonary artery are normal in caliber. Lungs and pleura: Elevation of the right hemidiaphragm. No suspicious nodules or infiltrates. Scattered atelectasis. No pleural effusions, pleural thickening, or pneumothorax. Lymph nodes/mediastinum: No mediastinal, hilar, or axillary adenopathy. Chest wall: No masses. Upper abdomen: Please refer to same-day CT abdomen/pelvis for further evaluation. Bones: Age indeterminate T9, T10, T11, T12 compression deformities. Recommend correlation with point tenderness. IMPRESSION: No pulmonary embolism as questioned. No focal consolidations. Age-indeterminate T9, T10, T11, T12 compression deformities. Recommend correlation with point tenderness. CT scan - abdomen: Attestation: I have reviewed the pertinent imaging results. Radiologist's impression: IMPRESSION: Some hyperemia of multiple loops of small bowel in the right lower quadrant which could suggest enteritis in the appropriate clinical setting. Diffuse mesenteric edema, nonspecific, but possibly reactive. Elevation of the right hemidiaphragm with moderate colonic stool burden. Moderately distended bladder. Recommend voiding. Otherwise, no acute intra-abdominal/pelvic abnormality, including bowel obstruction, drainable fluid collections, or free intraperitoneal air. CT angio abdomen / pelvis: Attestation: I have reviewed the pertinent imaging results. Radiologist's impression: Impression: 1. The arterial system is unremarkable in appearance with no occlusions or rate limiting stenosis. The superior mesenteric artery and its branches are widely patent. 2. Redemonstration of some hyperemia of a few loops of small bowel in the right lower quadrant, suggestive of enteritis. No evidence of bowel obstruction. 3. Diffuse mesenteric edema and soft tissue anasarca. Discharge Plan Discharge Clinical Impression: Abdominal pain, Enteritis Instructions: Abdominal Pain (ED) Additional Instructions: As we discussed, cause for her abdominal pain is not clear at this time. Use the prescription pain medicine in the if you needed but be careful because prescription pain killers can cause dizziness and drowsiness and can be addictive. Please come back to the ER for recheck if your pain is not improved within the next 24-48 hours. If her pain gets worse, come back to the ER right away. Prescriptions: No Action eye drops ophthalmic (eye) lisinopril 10 mg tablet 10 mg PO QDAY Qty: 90 0RF Rx Instructions: take 1 tablet daily cholecalciferol (vitamin D3) 50 mcg (2,000 unit) tablet 2,000 unit PO DAILY fluticasone propionate 50 mcg/actuation spray,suspension 1 intranasal BID Rx Instructions: 1 spray each nostril twice daily turmeric (bulk) [Curcumin] miscellaneous Follow Up/Referrals: Provider,Not a Local [Non-Staff] - Stand Alone Forms: [facility] Inst[facility]
--- NOTE | 2024-05-31 13:46 | CRLHL7_ITS ---
For Patients: As a result of the Century Cures Act, medical imaging exams and procedure reports are released immediately into your electronic medical record. You may view this report before your referring provider. If you have questions, please contact your health care provider. INDICATION: Left lower chest/rib pain. Left upper quadrant and periumbilical abdominal pain. TECHNIQUE: CT chest PE was acquired with 95 cc Isovue 370 IV contrast. COMPARISON: None. FINDINGS: Heart and vasculature: Contrast opacification of the pulmonary arterial tree is adequate. No sign of pulmonary embolism. Cardiomegaly thoracic aorta and pulmonary artery are normal in caliber. Lungs and pleura: Elevation of the right hemidiaphragm. No suspicious nodules or infiltrates. Scattered atelectasis. No pleural effusions, pleural thickening, or pneumothorax. Lymph nodes/mediastinum: No mediastinal, hilar, or axillary adenopathy. Chest wall: No masses. Upper abdomen: Please refer to same-day CT abdomen/pelvis for further evaluation. Bones: Age indeterminate T9, T10, T11, T12 compression deformities. Recommend correlation with point tenderness. IMPRESSION: No pulmonary embolism as questioned. No focal consolidations. Age-indeterminate T9, T10, T11, T12 compression deformities. Recommend correlation with point tenderness. Please refer to same-day CT abdomen/pelvis for further evaluation. Please note that all CT scans at this facility use dose modulation, iterative reconstruction, and/or weight-based dosing when appropriate to reduce radiation dose to as low as reasonably achievable. Dictated by Daniel Tolbert MD @ 05/31/2024 4:09:24 PM (Electronically Signed)
--- NOTE | 2024-05-31 13:47 | CRLHL7_ITS ---
For Patients: As a result of the 21st Century Cures Act, medical imaging exams and procedure reports are released immediately into your electronic medical record. You may view this report before your referring provider. If you have questions, please contact your health care provider. INDICATION: Abdominal pain. TECHNIQUE: CT abdomen and pelvis acquired with 100 cc Omnipaque 350 IV contrast. COMPARISON: None. FINDINGS: Lower chest: Elevation of the right hemidiaphragm. Please refer to same-day CT abdomen/pelvis for further evaluation. Liver: Unremarkable. Normal in size and attenuation. No suspicious masses. Gallbladder and bile ducts: Unremarkable. No stones or inflammation. No biliary dilatation. Pancreas: Unremarkable. No mass or inflammation. Spleen: Unremarkable. Normal in size. No masses. Adrenal glands: Unremarkable. No nodules. Kidneys: Bilateral renal cysts. No suspicious masses, stones, or hydronephrosis. GI tract: Some hyperemia of multiple loops of small bowel in the right lower quadrant. Moderate colonic stool burden. No bowel obstruction. Vasculature: Aortoiliac arterial calcifications. Abdominal aorta is normal in caliber. Mesenteric arteries are patent. Lymph nodes: No lymphadenopathy. Peritoneum/Abdominal Wall: Diffuse mesenteric edema. No free air or significant free fluid. Pelvis: Moderately distended bladder.. Bones: Age indeterminate L1 and L2 compression deformities. Recommend correlation with point tenderness IMPRESSION: Some hyperemia of multiple loops of small bowel in the right lower quadrant which could suggest enteritis in the appropriate clinical setting. Diffuse mesenteric edema, nonspecific, but possibly reactive. Elevation of the right hemidiaphragm with moderate colonic stool burden. Moderately distended bladder. Recommend voiding. Otherwise, no acute intra-abdominal/pelvic abnormality, including bowel obstruction, drainable fluid collections, or free intraperitoneal air. Please note that all CT scans at this facility use dose modulation, iterative reconstruction, and/or weight-based dosing when appropriate to reduce radiation dose to as low as reasonably achievable. Dictated by Daniel Tolbert MD @ 05/31/2024 4:17:59 PM (Electronically Signed)
[2024-05-31 14:04] LABS: Lactate* 0.9 mmol/L (0.5-1.9)
[2024-05-31 14:11] LABS: Basophils Absolute Auto 0.02 K/uL (0.00-0.30); Basophils Percent Auto 0.4 % (0.0-3.0); Eosinophils Absolute Auto 0.01 K/uL (0.00-0.50); Eosinophils Percent Auto 0.2 % (0.0-7.0); Hematocrit 35.3 % (37.0-53.0); Hemoglobin* 11.3 gm/dL (13.5-17.5); Immature Granulocytes Abs Auto 0.01 K/uL (0.00-0.30); Immature Granulocytes Pct Auto 0.2 %; Mean Corpuscular HGB Conc 32 gm/dL (32-36); Mean Corpuscular Hemoglobin 30 pg (26-34); Mean Corpuscular Volume 94 fL (80-100); Monocytes Percent Auto 9.1 % (0.0-11.0); Neutrophils Percent Auto 72.1 % (42.0-72.0); Platelet Count* 218 K/uL (140-440); RDW Coefficient of Variation % 13.5 % (11.5-15.5); Red Blood Count 3.74 m/uL (4.30-5.90); White Blood Count* 5.38 K/uL (4.50-11.00)
[2024-05-31 14:14] LABS: Appearance Urine Clear (Clear); Bilirubin Urine Negative (Negative); Blood Urine Trace-intact (Negative); Color Urine Yellow (Yellow); Glucose Urine Negative (Negative); Ketones Urine Negative (Negative); Leukocyte Esterase Urine Negative (Negative); Nitrite Urine Negative (Negative); Protein Urine Negative (Negative); Specific Gravity Urine 1.015 (1.000-1.030); Urobilinogen Urine 0.2 (0.2-1.0); pH Urine 6.5 (5.0-8.5)
[2024-05-31 14:21] LABS: Slide Review Reflex No
[2024-05-31 14:30] LABS: RBC Urine 0-2 (0-2); WBC Urine 0-2 (0-5)
[2024-05-31 14:45] LABS: Albumin* 3.5 g/dL (3.3-5.0); Chloride* 99 mmol/L (96-114)
[2024-05-31 14:46] LABS: Potassium* 3.9 mmol/L (3.6-5.1); Sodium* 135 mmol/L (135-149)
[2024-05-31 14:48] LABS: Alkaline Phosphatase* 97 U/L (40-150); Anion Gap 5 mEq/L (7-15); Aspartate Amino Transferase* 20 U/L (12-35); Bilirubin Total* 0.4 mg/dL (0.1-1.5); Blood Urea Nitrogen* 35 mg/dL (7-30); Carbon Dioxide* 31 mmol/L (20-32); Creatinine* 0.7 mg/dL (0.5-1.5); Est. Creatinine Clearance* 32.76; Estimated Glomerular Filt Rate 89 ml/min; Glucose* 86 mg/dL (60-115); Lipase* 262 U/L (23-300); Total Protein* 6.2 g/dL (6.0-8.3)
[2024-05-31 14:49] LABS: Alanine Aminotransferase* 23 U/L (4-50); Calcium* 8.7 mg/dL (8.4-10.6)
[2024-05-31 16:33] VITALS: BP 170/111; PULSE 72; O2SAT 95
--- NOTE | 2024-05-31 17:00 | CRLHL7_ITS ---
For Patients: As a result of the 21st Century Cures Act, medical imaging exams and procedure reports are released immediately into your electronic medical record. You may view this report before your referring provider. If you have questions, please contact your health care provider. Indication: ABD PAIN, CONCERN SMA OCCLUSION Technique: CTA abdomen/pelvis (non-contrasted, arterial, and portal venous phase), utilizing 95 mL Isovue 370. 3D/MIP post-processing on an independent workstation was performed. Comparison: Same day CT chest/abdomen/pelvis Findings: Lower thorax: Please see same-day CT chest for description of thoracic findings. Abdomen/pelvis: Liver: Unremarkable. Normal in size and attenuation. No suspicious masses. Gallbladder and bile ducts: Unremarkable. No stones or inflammation. No biliary dilatation. Pancreas: Unremarkable. No mass or inflammation. Spleen: Unremarkable. Normal in size. No suspicious masses. Adrenal glands: Unremarkable. No nodules. Kidneys: Numerous bilateral renal cysts. No suspicious masses, stones, or hydronephrosis. GI tract: There is redemonstration of some hyperemia of a few loops of small bowel in the right lower quadrant. No pneumatosis intestinalis. Moderate colonic stool burden. No bowel obstruction. Vasculature: No dissection, aneurysm, pseudoaneurysm, occlusion, rate limiting stenosis, or active arterial bleeding. There is mild calcified and noncalcified atherosclerosis throughout the arterial system without rate limiting stenosis. The celiac axis, SMA, single bilateral renal arteries, and SUKHDEV are widely patent. Lymph nodes: No lymphadenopathy. Peritoneum/Abdominal Wall: Diffuse mesenteric edema. No free air or significant free fluid. No abscess. Pelvis: Moderately distended bladder. Bones: Age indeterminate L1 and L2 compression deformities. Degenerative changes of the spine and bilateral hips. Impression: 1. The arterial system is unremarkable in appearance with no occlusions or rate limiting stenosis. The superior mesenteric artery and its branches are widely patent. 2. Redemonstration of some hyperemia of a few loops of small bowel in the right lower quadrant, suggestive of enteritis. No evidence of bowel obstruction. 3. Diffuse mesenteric edema and soft tissue anasarca. Please note that all CT scans at this facility use dose modulation, iterative reconstruction, and/or weight-based dosing when appropriate to reduce radiation dose to as low as reasonably achievable. Dictated by Chilo Dhillon MD @ 05/31/2024 6:27:42 PM (Electronically Signed)
[2024-05-31] MEDS: LACTATED RINGERS 500 ML 500 ML IV (17:36)
== END 2024-05-31 20:04 | disposition home or self-care (01) ==
PROVIDERS: Emergency Provider Emergency Medicine; PCP Family Medicine
DX: K52.9 Noninfective gastroenteritis and colitis, unspecified (principal)
CPT/HCPCS: 36415; 71275; 74174; 74177; 80053; 81001; 83605; 83690; 85025; 99284; J7120; Q9967

== ENCOUNTER 2024-07-05 09:18 | Inpatient (IN) | payer MEDICARE, BC, SELFPAY ==
[2024-07-05] VITALS (18 sets, daily range): BP systolic 175–199; BP diastolic 93–106; PULSE 68–83; RESP 18–24; TEMP 36.3–37.7; O2SAT 80–98; BMI 15.2; BMI 18.9
--- NOTE | 2024-07-05 10:24 | CRLHL7_ITS ---
For Patients: As a result of the Century Cures Act, medical imaging exams and procedure reports are released immediately into your electronic medical record. You may view this report before your referring provider. If you have questions, please contact your health care provider. INDICATIONS: Edema in leg and abdomen. Mid back pain. Left rib pain. TECHNIQUE: CT chest, abdomen and pelvis acquired with 49 cc of Isovue 370 IV contrast. COMPARISON: CT abdomen and pelvis 05/31/2024. CT chest 05/31/2024. FINDINGS: Chest: New trace bilateral pleural effusions. No pericardial effusion. No pathologic lymphadenopathy. Aortic atherosclerosis. Unenhanced thoracic aorta and main pulmonary arteries are normal in caliber. Coronary artery calcifications and mild cardiomegaly, as before. Soft tissues of the thoracic wall are unremarkable. No pneumothorax. Central airways are patent. Bibasilar atelectasis has slightly increased. Lungs are otherwise clear. Abdomen: The liver, spleen, pancreas and adrenal glands are unremarkable. No calcified gallstones or biliary ductal dilatation. Stable bilateral renal cysts. No urolithiasis or hydronephrosis. No bowel obstruction or focal inflammatory change of the GI tract. No pathologic lymphadenopathy or free fluid. Atherosclerotic disease. No abdominal aortic aneurysm. Body wall edema has slightly increased. Pelvis: Prostate and bladder as imaged are unremarkable/unchanged. Pelvic portions of the GI tract are unremarkable. No pathologic lymphadenopathy or free fluid. Bone windows: Demineralization and degenerative changes, as before. Chronic compression fractures of the T10 through L2 vertebra are unchanged. 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 Acute to subacute central superior endplate compression fracture of the L3 vertebra with mild central loss of vertebral body height. No displaced left rib fracture. IMPRESSION: 1. New trace bilateral pleural effusions. No acute airspace disease. 2. Body wall edema has slightly increased. 3. No acute intra-abdominal or pelvic abnormality. 4. Acute to subacute central superior endplate fracture of the L3 vertebra with mild loss of vertebral body height. Dictated by Oseas Vallejo MD @ 07/05/2024 12:38:30 PM Please note that all CT scans at this facility use dose modulation, iterative reconstruction, and/or weight-based dosing when appropriate to reduce radiation dose to as low as reasonably achievable. Dictated by: Oseas Vallejo MD @ 07/05/2024 12:40:38 (Electronically Signed)
[2024-07-05 10:36] LABS: Appearance Urine Clear (Clear); Bilirubin Urine Negative (Negative); Blood Urine 1+ (Negative); Color Urine Yellow (Yellow); Glucose Urine Negative (Negative); Ketones Urine Negative (Negative); Leukocyte Esterase Urine Negative (Negative); Nitrite Urine Negative (Negative); Protein Urine Negative (Negative); Urobilinogen Urine 0.2 (0.2-1.0); pH Urine 5.5 (5.0-8.5)
[2024-07-05 10:51] LABS: Basophils Absolute Auto 0.01 K/uL (0.00-0.30); Basophils Percent Auto 0.2 % (0.0-3.0); Eosinophils Absolute Auto 0.02 K/uL (0.00-0.50); Eosinophils Percent Auto 0.4 % (0.0-7.0); Hematocrit 35.3 % (37.0-53.0); Hemoglobin* 11.1 gm/dL (13.5-17.5); Immature Granulocytes Abs Auto 0.03 K/uL (0.00-0.30); Immature Granulocytes Pct Auto 0.6 %; Lymphocytes Percent Auto 15.4 % (20-44); Mean Corpuscular HGB Conc 31 gm/dL (32-36); Mean Corpuscular Hemoglobin 30 pg (26-34); Mean Corpuscular Volume 96 fL (80-100); Monocytes Percent Auto 9.8 % (0.0-11.0); Neutrophils Percent Auto 73.6 % (42.0-72.0); Platelet Count* 163 K/uL (140-440); RDW Coefficient of Variation % 13.9 % (11.5-15.5); Red Blood Count 3.67 m/uL (4.30-5.90); White Blood Count* 4.92 K/uL (4.50-11.00)
[2024-07-05 10:55] LABS: Slide Review Reflex No
[2024-07-05 11:01] LABS: Bacteria Urine Few; RBC Urine 0-2 (0-2); Squamous Epithelial Cell Urine Few (None-Few); WBC Urine 0-2 (0-5)
[2024-07-05 11:22] LABS: PCR FLU A Negative PCR FLU A (Negative); PCR FLU B Negative PCR FLU B (Negative); PCR RSV Negative PCR RSV (Negative); SARS PCR* Negative SARS-CoV-2 (Negative)
[2024-07-05 11:23] LABS: Albumin* 3.2 g/dL (3.3-5.0)
[2024-07-05 11:26] LABS: Alanine Aminotransferase* 48 U/L (4-50); Alkaline Phosphatase* 106 U/L (40-150); Aspartate Amino Transferase* 28 U/L (12-35); Bilirubin Total* 0.5 mg/dL (0.1-1.5); INR 1.18 (0.91-1.10); Prothrombin Time 15.8 Seconds
[2024-07-05 11:30] LABS: Chloride* 106 mmol/L (96-114); Sodium* 139 mmol/L (135-149)
[2024-07-05 11:31] LABS: Potassium* 3.4 mmol/L (3.6-5.1)
[2024-07-05 11:33] LABS: Creatinine* 0.7 mg/dL (0.5-1.5); Est. Creatinine Clearance* 32.76; Estimated Glomerular Filt Rate 89 ml/min
[2024-07-05 11:34] LABS: Anion Gap 3 mEq/L (7-15); Blood Urea Nitrogen* 26 mg/dL (7-30); Calcium* 8.2 mg/dL (8.4-10.6); Carbon Dioxide* 30 mmol/L (20-32); Glucose* 96 mg/dL (60-115)
[2024-07-05 11:37] LABS: C Reactive Protein* 0.7 mg/dL (0.5-1.0)
[2024-07-05 11:38] LABS: NT Pro B Type NatriureticPept* 9460 pg/mL; Troponin I* 0.03 ng/mL (0.01-0.04)
--- NOTE | 2024-07-05 11:40 | ED_ITS ---
HPI - General Adult General Chief complaint: Lower Extremity Swelling Stated complaint: leg swelling/abdomen swelling Time Seen by Provider: 07/05/24 09:46 Source: patient Mode of arrival: ambulatory Limitations: no limitations History of Present Illness HPI narrative: 89-year-old male presenting today with concerns about bilateral lower extremity swelling. He states it has been going on for about 3 weeks. He states that last night he became very uncomfortable secondary to discomfort of the lower extremities so he came in today for evaluation. Patient has a history of uncontrolled hypertension. He was on blood pressure medication a couple of years ago but he stop taking them all. He is convinced that he was ?overdosed on all my blood pressure medications?. Patient was seen in the emergency department 1 month ago with abdominal discomfort at that time he was found to have hyperemia of a few loops of small bowel and diffuse mesenteric ischemia and soft tissue anasarca. Patient has not followed up with his primary care team since. He denies feeling short of breath. He denies vomiting or fevers. States that he has no appetite but this is unchanged for quite some time. Patient states that he has lost over 80 lb in the last 6 years, unintentionally. Related Data Home Medications ?Medication ?Instructions ?Recorded ?Confirmed cholecalciferol (vitamin D3) 50 2,000 unit PO DAILY 03/09/22 07/05/24 mcg (2,000 unit) tablet fluticasone propionate 50 1 intranasal BID 03/09/22 09/07/22 mcg/actuation nasal spray,suspension eye drops ophthalmic (eye) 09/07/22 09/07/22 turmeric (bulk) miscellaneous 02/06/24 Previous Rx's ?Medication ?Instructions ?Recorded lisinopril 10 mg tablet 10 mg PO QDAY #90 tabs 09/07/22 Allergies Allergy/AdvReac Type Severity Reaction Status Date / Time No Known Drug Allergies Allergy Verified 07/05/24 11:54 Review of Systems Status of ROS: Reports: 10 or more systems reviewed and unremarkable except as noted in History and below [facility] Medical History Weight loss ?R63.4 - Abnormal weight loss (ICD-10) Slurred speech ?R47.81 - Slurred speech (ICD-10) Umbilical hernia (07/15/09) ?K42.9 - Umbilical hernia without obstruction or gangrene (ICD-10) Gastrointestinal hemorrhage (09/2020) ?K92.2 - Gastrointestinal hemorrhage, unspecified (ICD-10) Concussion (2019) ?S06.0X9A - Concussion with loss of consciousness of unspecified duration, initial encounter (ICD-10) Surgical History History of tonsillectomy ?Z90.89 - Acquired absence of other organs (ICD-10) History of appendectomy ?Z90.49 - Acquired absence of other specified parts of digestive tract (ICD- 10) Social History Smoking Status: Former smoker What tobacco products do you use: cigarettes Smoking quit date/years: >15 years ago Do you use any of these nicotine containing products: None Second hand tobacco smoke exposure: No How often do you have a drink containing alcohol: never How often do you have six or more drinks on one occasion: Never AUDIT-C Alcohol total score: 0 Non-prescribed substance use: denies use service: No Exam Narrative: Exam Narrative: Well-nourished well-developed patient in no acute distress. Patient seems slightly confused. He blames many of his problems including his weight loss on his previous primary care provider. Patient speaks in full sentences without needing to catch his breath. HEENT: Normocephalic atraumatic. Pupils are equally round reactive to light. Extraocular muscles are intact. Conjunctivae are moist without any icterus noted. Moist mucous membranes. Posterior pharynx is normal. Neck is soft. Cardiovascular: Heart is regular rate and rhythm S1 and S2 are present without any murmurs. Lungs: Clear to auscultation bilaterally no wheezes rhonchi or rales are appreciated. Patient takes deep breaths without any discomfort. Abdomen: Soft and nontender nondistended with normal bowel sounds. Patient has a edema to about the umbilicus. Extremities: Bilateral lower extremities show 3+ pitting edema through the entirety of the extremities. Skin: Well perfused. Const: Vital Signs, click to edit/add: Vital Signs - 24 hr 07/05/24 09:27 Temperature 99.8 F H Pulse Rate [Right Pulse Oximeter] 83 Respiratory Rate 18 Blood Pressure [Ri ght Upper Arm] 199/98 H Pulse Oximetry 97 Oxygen Delivery Me thod Room Air Course Course ED Course: 89-year-old male presenting with anasarca. Workup today included a CBC which was unremarkable and without significant changes from previous CBCs. He does have mild anemia with a hemoglobin of 11.1. He was 11.3 on 05/31/2024. INR is elevated at 1.18. Chemistry show potassium slightly low at 3.4. A normal glucose. Calcium slightly low at 8.2. Normal magnesium. Normal LFTs. Normal troponin. Normal CRP. BNP greater than 9000. Total protein and albumin unremarkable at 6 and 3.2 respectively. A urine analysis is unremarkable. EKG, read by me, shows normal sinus rhythm with a pulse of 66, occasional PVC. Chest abdomen CT shows new trace pleural effusions, and abdominal wall edema. Vital Signs Vital signs: Initial Vital Signs Temperature 99.8 F H 07/05/24 09:27 Temperature Source Temporal Artery Scan 07/05/24 09:27 Pulse Rate 83 07/05/24 09:27 Pulse Rhythm Regular 07/05/24 09:27 Pulse Strength 3+ Normal 07/05/24 09:27 Respiratory Rate 18 07/05/24 09:27 Blood Pressure 199/98 H 07/05/24 09:27 Blood Pressure Mean 131 H 07/05/24 09:27 Blood Pressure Position Sitting 07/05/24 09:27 Pulse Oximetry 97 07/05/24 09:27 Oxygen Delivery Method Room Air 07/05/24 09:27 Vital Signs Temperature 99.8 F H 07/05/24 09:27 Pulse Rate 83 07/05/24 09:27 Respiratory Rate 18 07/05/24 09:27 Blood Pressure 199/98 H 07/05/24 09:27 Pulse Oximetry 97 07/05/24 09:27 Oxygen Delivery Method Room Air 07/05/24 09:27 Temperature 99.8 F H 07/05/24 09:27 Pulse Rate 83 07/05/24 09:27 Respiratory Rate 18 07/05/24 09:27 Blood Pressure 199/98 H 07/05/24 09:27 Pulse Oximetry 97 07/05/24 09:27 Oxygen Delivery Method Room Air 07/05/24 09:27 Medical Decision Making MDM Narrative Medical decision making narrative: 89-year-old male with anasarca. Patient will be admitted at this time for further management. Lab Data Lab results reviewed: Yes I reviewed the patient's lab results Labs: Lab Results 07/05/24 07/05/24 07/05/24 Range/Units 10:26 10:44 Unknown WBC 4.92 (4.50-11.00) K/uL RBC 3.67 L (4.30-5.90) m/uL Hgb 11.1 L (13.5-17.5) gm/dL Hct 35.3 L (37.0-53.0) % MCV 96 (80-100) fL MCH 30 (26-34) pg MCHC 31 L (32-36) gm/dL RDW Coeff of Adrian 13.9 (11.5-15.5) % Plt Count 163 (140-440) K/uL Neut % (Auto) 73.6 H (42.0-72.0) % Lymph % (Auto) 15.4 L (20-44) % [place] % (Auto) 9.8 (0.0-11.0) % Eos % (Auto) 0.4 (0.0-7.0) % Baso % (Auto) 0.2 (0.0-3.0) % Neut # (Auto) 3.60 (1.7-7.0) K/uL Lymph # (Auto) 0.80 L (0.90-2.90) K/uL [place] # (Auto) 0.50 (0.00-0.90) K/UL Eos # (Auto) 0.02 (0.00-0.50) K/uL Baso # (Auto) 0.01 (0.00-0.30) K/uL Abs Immat Gran (auto) 0.03 (0.00-0.30) K/uL Imm/Tot Granulo (auto) 0.6 % INR 1.18 H (0.91-1.10) Sodium 139 (135-149) mmol/L Potassium 3.4 L (3.6-5.1) mmol/L Chloride 106 (96-114) mmol/L Carbon Dioxide 30 (20-32) mmol/L Anion Gap 3 L (7-15) mEq/L BUN 26 (7-30) mg/dL Creatinine 0.7 (0.5-1.5) mg/dL Estimated Creat Clear 32.76 Estimated GFR 89 ml/min Glucose 96 (60-115) mg/dL Lactate 1.0 (0.5-1.9) mmol/L Calcium 8.2 L (8.4-10.6) mg/dL Magnesium 2.0 (1.5-2.6) mg/dL Total Bilirubin 0.5 (0.1-1.5) mg/dL Direct Bilirubin 0.0 (0.0-0.5) mg/dL AST 28 (12-35) U/L ALT 48 (4-50) U/L Alkaline Phosphatase 106 (40-150) U/L Troponin I 0.03 (0.01-0.04) ng/mL C-Reactive Protein 0.7 (0.5-1.0) mg/dL NT-Pro-B Natriuret Pep 9460 pg/mL Total Protein 6.0 (6.0-8.3) g/dL Albumin 3.2 L (3.3-5.0) g/dL Urine Color Yellow (Yellow) Urine Appearance Clear (Clear) Urine pH 5.5 (5.0-8.5) Ur Specific [place] 1.020 (1.000-1.030) Urine Protein Negative (Negative) Urine Glucose (UA) Negative (Negative) Urine Ketones Negative (Negative) Urine Blood 1+ A (Negative) Urine Nitrite Negative (Negative) Urine Bilirubin Negative (Negative) Urine Urobilinogen 0.2 (0.2-1.0) Ur Leukocyte Esterase Negative (Negative) Urine RBC 0-2 (0-2) Urine WBC 0-2 (0-5) Ur Squamous Epith Cells Few (None-Few) Urine Bacteria Few A (None) SARS-CoV-2 (PCR) Negative SARS-CoV-2 (Negative) Influenza Type A (PCR) Negative PCR FLU A (Negative) Influenza Type B (PCR) Negative PCR FLU B (Negative) RSV (PCR) Negative PCR RSV (Negative) Imaging Data CT Chest/Ab/Pelvis: Attestation: I have reviewed the pertinent imaging results. Radiologist's impression: CT abdomen and pelvis 05/31/2024. CT chest 05/31/2024. FINDINGS: Chest: New trace bilateral pleural effusions. No pericardial effusion. No pathologic lymphadenopathy. Aortic atherosclerosis. Unenhanced thoracic aorta and main pulmonary arteries are normal in caliber. Coronary artery calcifications and mild cardiomegaly, as before. Soft tissues of the thoracic wall are unremarkable. No pneumothorax. Central airways are patent. Bibasilar atelectasis has slightly increased. Lungs are otherwise clear. Abdomen: The liver, spleen, pancreas and adrenal glands are unremarkable. No calcified gallstones or biliary ductal dilatation. Stable bilateral renal cysts. No urolithiasis or hydronephrosis. No bowel obstruction or focal inflammatory change of the GI tract. No pathologic lymphadenopathy or free fluid. Atherosclerotic disease. No abdominal aortic aneurysm. Body wall edema has slightly increased. Pelvis: Prostate and bladder as imaged are unremarkable/unchanged. Pelvic portions of the GI tract are unremarkable. No pathologic lymphadenopathy or free fluid. Bone windows: Demineralization and degenerative changes, as before. Chronic compression fractures of the T10 through L2 vertebra are unchanged. 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 Acute to subacute central superior endplate compression fracture of the L3 vertebra with mild central loss of vertebral body height. No displaced left rib fracture. IMPRESSION: 1. New trace bilateral pleural effusions. No acute airspace disease. 2. Body wall edema has slightly increased. 3. No acute intra-abdominal or pelvic abnormality. 4. Acute to subacute central superior endplate fracture of the L3 vertebra with mild loss of vertebral body height. ECG Data Attestation: I personally reviewed and interpreted this ECG as follows: Discharge Plan Discharge Clinical Impression: Anasarca Patient Disposition: Admitted As Observation Condition: Stable Prescriptions: No Action eye drops ophthalmic (eye) lisinopril 10 mg tablet 10 mg PO QDAY Qty: 90 0RF Rx Instructions: take 1 tablet daily cholecalciferol (vitamin D3) 50 mcg (2,000 unit) tablet 2,000 unit PO DAILY fluticasone propionate 50 mcg/actuation spray,suspension 1 intranasal BID Rx Instructions: 1 spray each nostril twice daily turmeric (bulk) [Curcumin] miscellaneous Follow Up/Referrals: Gerson Mejia MD [Primary Care Provider] -
--- NOTE | 2024-07-05 15:34 | P.IMHP_ITS ---
Hospitalist- H&P: HPI History of Present Illness Date Seen: 07/05/24 Chief complaint: leg swelling/abdomen swelling Narrative: Omega Ivey is a 89 year old man presents with a 3 week history of increased bilateral lower extremity edema up to the abdomen, including scrotum and penis. Notes a sense of increased dyspnea with exertion. Denies dyspnea at rest. Denies paroxysmal nocturnal dyspnea or orthopnea. Denies chest, neck, shoulder, arm heaviness, tightness, pressure, or pain. Denies syncope or near- syncope. Denies nausea or vomiting. Denies palpitations. Denies fevers, rigors, diaphoresis. Denies dysuria, urgency, frequency, hematuria. Denies constipation or diarrhea. Acknowledges decreased oral consumption. Likes to eat oatmeal and fish, and sometimes likes to eat an egg sandwich. Eats small quantities of meals with these items maybe every 4 hours throughout the day and sometimes during the night. Tells me he sometimes has ?low blood sugar. ? Believes he has unintentionally lost 80 lb over the last 8 years. Believes he has unintentionally gained 20 lb over the last 2-3 weeks. Historically used to eat a no added salt diet. Has not been eating a no added salt diet for the better part of the last 2 years. Historically was treated for hypertension with lisinopril and amlodipine. He quit taking these medications when he decided to no longer see a primary care physician he had been seen, Gabi Pabon. He tells me how he believes this car egiver was not sufficiently attentive to his needs. Review of Systems Status of ROS: Reports: 10 or more systems reviewed and unremarkable except as noted in History and below Narrative: Does not follow-up with a primary care physician any longer. Quit seen his primary care physician roughly 2 years ago. States he no longer trusted his primary care physician at that time. Denies myalgias or arthralgias. Has some discomfort in his left posterior iliac crest region which he indicates is aggravated particularly at night if he lays on his left side. Denies focal motor neurologic deficits. 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 He tried smoking cigarettes at 17 years of age in has not smoked any cigarettes or used any other tobacco products since then. Denies consumption of any alcoholic beverages. He used to share 1 beer per day with his when she was alive. They both had half a can of beer in the evening. Since she over 2 years ago he has not had any alcohol consumption whatsoever. Lives alone in his own home. His children are supportive of him being in his own home and check on him regularly. He designates his son, Cristhian, as the main spokesperson to make decisions about his healthcare should the patient not be able to do so. Cristhian cell phone number is [phone]. He designates his daughter, Brooke Frankel, as the secondary spokes person to make healthcare decisions on his behalf if he is not able to do so and Cristhian is not available. Brooke's cell phone number is [phone]. [facility] Medical History Glaucoma ?H40.9 - Unspecified glaucoma (ICD-10) Weight loss ?R63.4 - Abnormal weight loss (ICD-10) Slurred speech ?R47.81 - Slurred speech (ICD-10) Umbilical hernia (07/15/09) ?K42.9 - Umbilical hernia without obstruction or gangrene (ICD-10) Gastrointestinal hemorrhage (09/2020) ?K92.2 - Gastrointestinal hemorrhage, unspecified (ICD-10) Concussion (2019) ?S06.0X9A - Concussion with loss of consciousness of unspecified duration, initial encounter (ICD-10) Surgical History History of tonsillectomy ?Z90.89 - Acquired absence of other organs (ICD-10) History of appendectomy ?Z90.49 - Acquired absence of other specified parts of digestive tract (ICD- 10) Social History What is your current living situation?: I presently have a place to live Problems where you live: no known problems Problems where you live details: NA In the past 12 months, utilities in danger of being shut off: no In the past 12 mos, have been you worried that your food would run out before you had money to buy more?: never true In the past 12 mos, the food you bought just didn't last and you didn't have money to buy more?: never true Highest level of school completed/degree received: 8th grade Smoking Status: Former smoker What tobacco products do you use: cigarettes Smoking quit date/years: >15 years ago Do you use any of these nicotine containing products: None Second hand tobacco smoke exposure: No How often do you have a drink containing alcohol: never How often do you have six or more drinks on one occasion: Never AUDIT-C Alcohol total score: 0 Non-prescribed substance use: denies use Caffeine: No How often does anyone, including family, friends and others, physically hurt you : unable to answer How often does anyone, including family, friends and others, insult or talk down to you: unable to answer How often does anyone, including family, friends and others, threaten you with harm: unable to answer How often does anyone, including family, friends and others, scream or curse at you: unable to answer service: No Meds Home Medications and Allergies Home Medications ?Medication ?Instructions ?Recorded ?Confirmed ?Type cholecalciferol (vitamin D3) 50 2,000 unit PO DAILY 03/09/22 07/05/24 History mcg (2,000 unit) tablet latanoprost 0.005 % eye drops 1 drp ophthalmic (eye-left) QPM 07/05/24 07/05/24 History multivitamin-ferrous 1 tab PO DAILY 07/05/24 07/05/24 History fumarate-folic acid 18 mg-400 mcg tablet (Complete Multivitamin-Multimineral) polyethylene glycol 400 0.25 % eye 1 drp ophthalmic (eye) DAILY 07/05/24 07/05/24 History drops (Blink Tears) Allergies Allergy/AdvReac Type Severity Reaction Status Date / Time No Known Drug Allergies Allergy Verified 07/05/24 11:54 Exam Narrative: Exam Narrative: I examined the patient in his hospital room. His son, Cristhian, is also present. He appears comfortable and in no acute distress. Alert and oriented to self, place, time, and in great measure to situation. Friendly, cooperative. Mild to moderate decreased hearing but sufficient to be able to engage in meaningful conversation. Vision is adequate. Skeletal features with bony prominences in upper tore some including shoulders, back, and chest. Thin upper extremities. Edematous bilateral lower extremities. Sunken facial features. Normal tympanic membranes bilaterally. Midline nasal septum. Dentition in fair repair. No icterus or conjunctival injection. Conjugate gaze. Midline trachea. Supple neck. Lungs are clear to auscultation without any wheezing, rhonchi, or rales. Chest wall excursions are full. No CVA tenderness to thumping. Heart tones with regular rhythm, normal S1-S2, without murmur, gallop, or rub. Abdomen with active bowel sounds. Soft, nontender. Patient has edema in feet, legs, thighs, penis, scrotum, presacral area, abdomen. No petechiae, cyanosis, or jaundice. No other rashes. No focal motor neurologic deficits. Independent with transfers and gait. Stooped forward posture. Const: Vital Signs, click to edit/add: Vital Signs - 24 hr 07/05/24 09:27 07/05/24 10:17 07/05/24 10:24 Temperature 99.8 F H Pulse Rate 79 Pulse Rate [Left P ulse Oximeter] Pulse Rate [Right Pulse Oximeter] 83 Respiratory Rate 18 Blood Pressure Blood Pressure [Le ft Arm] Blood Pressure [Ri ght Upper Arm] 199/98 H Pulse Oximetry 97 94 98 Oxygen Delivery Me thod Room Air 07/05/24 10:30 07/05/24 10:32 07/05/24 10:45 Temperature Pulse Rate 72 72 72 Pulse Rate [Left P ulse Oximeter] Pulse Rate [Right Pulse Oximeter] Respiratory Rate Blood Pressure 189/101 H Blood Pressure [Le ft Arm] Blood Pressure [Ri ght Upper Arm] Pulse Oximetry 97 98 94 Oxygen Delivery Me thod 07/05/24 11:00 07/05/24 11:04 07/05/24 11:15 Temperature Pulse Rate 72 70 72 Pulse Rate [Left P ulse Oximeter] Pulse Rate [Right Pulse Oximeter] Respiratory Rate Blood Pressure Blood Pressure [Le ft Arm] Blood Pressure [Ri ght Upper Arm] Pulse Oximetry 96 97 96 Oxygen Delivery Me thod 07/05/24 11:49 07/05/24 12:00 07/05/24 12:04 Temperature Pulse Rate 77 70 Pulse Rate [Left P ulse Oximeter] Pulse Rate [Right Pulse Oximeter] Respiratory Rate Blood Pressure Blood Pressure [Le ft Arm] Blood Pressure [Ri ght Upper Arm] Pulse Oximetry 80 L 93 97 Oxygen Delivery Me thod 07/05/24 12:15 07/05/24 12:30 07/05/24 12:45 Temperature Pulse Rate 74 68 73 Pulse Rate [Left P ulse Oximeter] Pulse Rate [Right Pulse Oximeter] Respiratory Rate Blood Pressure Blood Pressure [Le ft Arm] Blood Pressure [Ri ght Upper Arm] Pulse Oximetry 93 91 93 [facility] 13:21 Temperature Pulse Rate Pulse Rate [Left P ulse Oximeter] 74 Pulse Rate [Right Pulse Oximeter] Respiratory Rate 18 Blood Pressure Blood Pressure [Le ft Arm] 185/94 H Blood Pressure [Ri ght Upper Arm] Pulse Oximetry [facility] - H&P: Result Labs Labs: Short CBC 07/05/24 Range/Units 10:44 WBC 4.92 (4.50-11.00) K/uL Hgb 11.1 L (13.5-17.5) gm/dL Hct 35.3 L (37.0-53.0) % Plt Count 163 (140-440) K/uL BMP 07/05/24 10:44 Sodium 139 Potassium 3.4 L Chloride 106 Carbon Dioxide 30 BUN 26 Creatinine 0.7 Glucose 96 Calcium 8.2 L Cardiac Enzymes 07/05/24 Range/Units 10:44 Troponin I 0.03 (0.01-0.04) ng/mL Liver Function 07/05/24 Range/Units 10:44 Total Bilirubin 0.5 (0.1-1.5) mg/dL Direct Bilirubin 0.0 (0.0-0.5) mg/dL AST 28 (12-35) U/L ALT 48 (4-50) U/L Alkaline Phosphatase 106 (40-150) U/L Albumin 3.2 L (3.3-5.0) g/dL Urine 07/05/24 Range/Units Unknown Urine Color Yellow (Yellow) Urine Appearance Clear (Clear) Urine pH 5.5 (5.0-8.5) Ur Specific [place] 1.020 (1.000-1.030) Urine Protein Negative (Negative) Urine Glucose (UA) Negative (Negative) Assessment and Plan Assessment and plan (1) Anasarca: Problem comment: - etiology not yet determined. Differential diagnosis include following: Cardiac, pulmonary, renal, hepatic, endocrine, nutritional etiologies - further testing including TSH, pre albumin, iron studies, echocardiogram - initiate furosemide 20 mg IV now and then 20 mg IV every morning and monitor response - dietary consultation Status: Acute (2) Hypertension: Problem comment: - has been off of his antihypertensive medications for at least 2 years - suspicious he has underlying hypertensive heart disease with heart failure Status: Chronic (3) Anemia: Problem comment: -a unremarkable iron studies ; unremarkable chest x-ray 04/17/2020-B12 normal at 616 10/11/2021-hemoglobin 13.5 - 07/05/2024 hemoglobin 11.1. Check iron studies. Check vitamin B12 level. Trend. Status: Chronic (4) Cachexia: Problem comment: - dietary consultation Status: Acute (5) Sarcopenia: Problem comment: - PT and OT consultation Status: Acute Plan 1. I reviewed my impressions, plans, recommendations with patient and son, Cristhian. Answered their questions to their satisfaction. They are agreeable with above stated plans and recommendations. 2. I indicated that he will need outpatient clinician support. Total Time Spent Total Time Spent: 70 min
[2024-07-05] MEDS: FUROSEMIDE 10 MG/ML inj 20 MG IVP (15:48)
[2024-07-05 16:05] LABS: Iron* 42 ug/dL (49-181)
[2024-07-05 16:14] LABS: Percent Iron Saturation 16 % (20-50); Total Iron Binding Capacity 261 ug/dL (261-462)
[2024-07-05 17:29] LABS: Vitamin B12* 406 pg/mL (243-894)
--- NOTE | 2024-07-05 18:42 | PC.NURSE ---
Nursing Care Hours: [id number] Pt this shift arrived to unit via w/c, alert and oriented, calm and cooperative. No c/o pain. No SOB or chest pain. SB assist from w/c to recliner. Stable on room air, BP elevated and asymptomatic. Hospitalist made aware. Pitting edema observed to otoniel MENG. Irregular pulse palpated and observed on wave form. Hospitalist made aware, EKG done in ED. Tolerating regular diet. Voiding using the urinal. Pt reports walking without assistive device at home but admits that his balance is sometimes off. Most recent fall three years ago per pt. Pt instructed to use call light if needing to transfer while here.
[2024-07-05] MEDS: LATANOPROST 0.005% OPHTH 1 DROP EYE-BOTH (20:34)
[2024-07-05] MEDS: SODIUM CHLORIDE 0.9 % (FLUSH) 10 ML SYRINGE 5 ML IVF (20:35)
[2024-07-06] VITALS (8 sets, daily range): BP systolic 154–185; BP diastolic 84–109; PULSE 63–84; RESP 16–20; TEMP 36.3–36.8; O2SAT 94–98
[2024-07-06 06:37] LABS: Hematocrit 36.2 % (37.0-53.0); Hemoglobin* 11.3 gm/dL (13.5-17.5); Mean Corpuscular HGB Conc 31 gm/dL (32-36); Mean Corpuscular Hemoglobin 30 pg (26-34); Mean Corpuscular Volume 96 fL (80-100); Platelet Count* 157 K/uL (140-440); Red Blood Count 3.76 m/uL (4.30-5.90); White Blood Count* 4.42 K/uL (4.50-11.00)
[2024-07-06 06:48] LABS: Chloride* 104 mmol/L (96-114)
[2024-07-06 06:49] LABS: Albumin* 3.2 g/dL (3.3-5.0); Potassium* 3.6 mmol/L (3.6-5.1); Sodium* 140 mmol/L (135-149)
[2024-07-06 06:51] LABS: Anion Gap 0 mEq/L (7-15); Carbon Dioxide* 36 mmol/L (20-32); Cholesterol* 114 mg/dL (90-199)
[2024-07-06 06:52] LABS: Alanine Aminotransferase* 45 U/L (4-50); Alkaline Phosphatase* 108 U/L (40-150); Aspartate Amino Transferase* 27 U/L (12-35); Bilirubin Total* 0.3 mg/dL (0.1-1.5); Blood Urea Nitrogen* 31 mg/dL (7-30); Creatinine* 0.8 mg/dL (0.5-1.5); Est. Creatinine Clearance* 39.18; Estimated Glomerular Filt Rate 85 ml/min; Glucose* 96 mg/dL (60-115); Total Protein* 5.9 g/dL (6.0-8.3)
[2024-07-06 06:53] LABS: Calcium* 8.3 mg/dL (8.4-10.6); HDL Cholesterol* 47 mg/dL (>=40); LDL Cholesterol Calculated 57 mg/dL (<100); Phosphorus* 3.5 mg/dL (2.5-4.5); Slide Review Reflex No; Triglycerides* 50 mg/dL (40-149)
[2024-07-06 06:55] LABS: C Reactive Protein* 0.7 mg/dL (0.5-1.0)
--- NOTE | 2024-07-06 07:29 | PC.NURSE ---
end of shift note: pt pleasant and cooperative with cares. ambulates with sba/w. night uneventful. does not use call light appropriately; sets off chair alarm multiple times. vss on ra. afebrile.
--- NOTE | 2024-07-06 07:43 | PM.IMPN1 ---
Progress Note: A&P Assessment and plan (1) Anasarca: Problem details: - etiology not yet determined. ddx: Cardiac, pulmonary, renal, hepatic, endocrine, nutritional etiologies - further testing including TSH, pre albumin, iron studies, echocardiogram - 07/05: furosemide 20 mg IV now and then 20 mg IV every morning and monitor response - dietary consultation - continues to require IV Lasix + monitoring for electrolyte abnormalities Status: Acute (2) Hypertension: Problem details: - has been off of his antihypertensive medications for at least 2 years - concern for underlying hypertensive heart disease with resultant CHF - home BPs are good per his report, not interested in restarting medications at this time but willing to continue diuretic - will re-address after formal TTE results Status: Chronic (3) Anemia: Problem details: - 09/2018: unremarkable iron studies and chest x-ray - 04/17/2020-B12 normal at 616 - 10/11/2021-hemoglobin 13.5 - 07/05/2024 hemoglobin 11.1, iron studies c/w iron deficiency anemia Status: Chronic (4) Cachexia: Problem details: - dietary consultation - BMI 18, appetite excellent Status: Acute (5) Sarcopenia: Problem details: - PT and OT consultation Status: Acute (6) Arrhythmia: Problem details: - PVCs on EKG and telemetry, continue to follow to ensure no other underlying rhythm abnormality Status: Acute Plan - per above - consider home tomorrow pending diuresis, electrolyte results, formal TTE results Subjective Date Seen: 07/06/24 Interval history: Cristhian was admitted yesterday for anasarca and pulmonary edema. Noted to have an elevated BNP. PVCs on admission EKG. He was admitted to the hospital for IV diuresis, monitoring of vital signs and electrolytes, and echocardiogram. Since admission, he has been diuresing well. Down 2kg and tolerating Lasix. Potassium 3.6 today, on supplementation as well. Cristhian has no complaints of chest pain or orthopnea today. No headache. Tolerating therapies. BP 160-190s/90s; he is not interested in restarting any anti-hypertensives. Exam Narrative: Exam Narrative: GEN: Alert and oriented, nontoxic HEENT: EOMIs bilaterally, no scleral icterus CV: Irregular, no concerning murmurs R: No wheezing, fine bibasilar rales, air movement adequate Ext: 3+ pitting edema BLE up to mid-thigh Skin: No concerning skin lesions or rashes on exposed skin Neuro: No focal deficits or resting tremor Psych: Appropriate Const: Vital Signs, click to edit/add: Vital Signs - 24 hr 07/05/24 09:27 07/05/24 10:17 07/05/24 10:24 Temperature 99.8 F H Pulse Rate 79 Pulse Rate [Left P ulse Oximeter] Pulse Rate [Right Pulse Oximeter] 83 Respiratory Rate 18 Blood Pressure Blood Pressure [Le ft Arm] Blood Pressure [Ri ght Upper Arm] 199/98 H Pulse Oximetry 97 94 98 Oxygen Delivery Me thod Room Air 07/05/24 10:30 07/05/24 10:32 07/05/24 10:45 Temperature Pulse Rate 72 72 72 Pulse Rate [Left P ulse Oximeter] Pulse Rate [Right Pulse Oximeter] Respiratory Rate Blood Pressure 189/101 H Blood Pressure [Le ft Arm] Blood Pressure [Ri ght Upper Arm] Pulse Oximetry 97 98 94 Oxygen Delivery Me thod 07/05/24 11:00 07/05/24 11:04 07/05/24 11:15 Temperature Pulse Rate 72 70 72 Pulse Rate [Left P ulse Oximeter] Pulse Rate [Right Pulse Oximeter] Respiratory Rate Blood Pressure Blood Pressure [Le ft Arm] Blood Pressure [Ri ght Upper Arm] Pulse Oximetry 96 97 96 Oxygen Delivery Me thod 07/05/24 11:49 07/05/24 12:00 07/05/24 12:04 Temperature Pulse Rate 77 70 Pulse Rate [Left P ulse Oximeter] Pulse Rate [Right Pulse Oximeter] Respiratory Rate Blood Pressure Blood Pressure [Le ft Arm] Blood Pressure [Ri ght Upper Arm] Pulse Oximetry 80 L 93 97 Oxygen Delivery Me thod 07/05/24 12:15 07/05/24 12:30 07/05/24 12:45 Temperature Pulse Rate 74 68 73 Pulse Rate [Left P ulse Oximeter] Pulse Rate [Right Pulse Oximeter] Respiratory Rate Blood Pressure Blood Pressure [Le ft Arm] Blood Pressure [Ri ght Upper Arm] Pulse Oximetry 93 91 93 Oxygen Delivery Me thod 07/05/24 13:21 07/05/24 20:25 07/05/24 20:25 Temperature 97.4 F L Pulse Rate Pulse Rate [Left P ulse Oximeter] 74 69 69 Pulse Rate [Right Pulse Oximeter] Respiratory Rate 18 18 18 Blood Pressure Blood Pressure [Le ft Arm] 185/94 H 188/106 H Blood Pressure [Ri ght Upper Arm] Pulse Oximetry 98 Oxygen Delivery Me thod Room Air 07/05/24 20:25 07/05/24 22:35 07/06/24 03:30 Temperature 97.4 F L 97.4 F L Pulse Rate Pulse Rate [Left P ulse Oximeter] 78 69 Pulse Rate [Right Pulse Oximeter] Respiratory Rate 18 24 20 Blood Pressure Blood Pressure [Le ft Arm] 175/93 H 169/91 H Blood Pressure [Ri ght Upper Arm] Pulse Oximetry 98 96 98 Oxygen Delivery Me thod Room Air Room Air Room Air Labs Labs: Laboratory Results - last 24 hr 07/05/24 07/05/24 07/05/24 10:26 10:44 15:25 WBC 4.92 RBC 3.67 L Hgb 11.1 L Hct 35.3 L MCV 96 MCH 30 MCHC 31 L RDW Coeff of Adrian 13.9 Plt Count 163 Neut % (Auto) 73.6 H Lymph % (Auto) 15.4 L [place] % (Auto) 9.8 Eos % (Auto) 0.4 Baso % (Auto) 0.2 Neut # (Auto) 3.60 Lymph # (Auto) 0.80 L [place] # (Auto) 0.50 Eos # (Auto) 0.02 Baso # (Auto) 0.01 Abs Immat Gran (auto) 0.03 Imm/Tot Granulo (auto) 0.6 INR 1.18 H Sodium 139 Potassium 3.4 L Chloride 106 Carbon Dioxide 30 Anion Gap 3 L BUN 26 Creatinine 0.7 Estimated Creat Clear 32.76 Estimated GFR 89 Glucose 96 Lactate 1.0 Calcium 8.2 L Phosphorus Magnesium 2.0 Iron 42 L TIBC 261 % Saturation 16 L Total Bilirubin 0.5 Direct Bilirubin 0.0 AST 28 ALT 48 Alkaline Phosphatase 106 Troponin I 0.03 C-Reactive Protein 0.7 NT-Pro-B Natriuret Pep 9460 Total Protein 6.0 Albumin 3.2 L Triglycerides Cholesterol LDL Cholesterol, Calc HDL Cholesterol Vitamin B12 406 TSH 1.540 Urine Color Urine Appearance Urine pH Ur Specific [place] Urine Protein Urine Glucose (UA) Urine Ketones Urine Blood Urine Nitrite Urine Bilirubin Urine Urobilinogen Ur Leukocyte Esterase Urine RBC Urine WBC Ur Squamous Epith Cells Urine Bacteria SARS-CoV-2 (PCR) Negative SARS-CoV-2 Influenza Type A (PCR) Negative PCR FLU A Influenza Type B (PCR) Negative PCR FLU B RSV (PCR) Negative PCR RSV Lab Acknowledgement Test Added 07/05/24 07/05/24 07/05/24 15:30 16:00 Unknown WBC RBC Hgb Hct MCV MCH MCHC RDW Coeff of Adrian Plt Count Neut % (Auto) Lymph % (Auto) [place] % (Auto) Eos % (Auto) Baso % (Auto) Neut # (Auto) Lymph # (Auto) [place] # (Auto) Eos # (Auto) Baso # (Auto) Abs Immat Gran (auto) Imm/Tot Granulo (auto) INR Sodium Potassium Chloride Carbon Dioxide Anion Gap BUN Creatinine Estimated Creat Clear Estimated GFR Glucose Lactate Calcium Phosphorus Magnesium Iron TIBC % Saturation Total Bilirubin Direct Bilirubin AST ALT Alkaline Phosphatase Troponin I C-Reactive Protein NT-Pro-B Natriuret Pep Total Protein Albumin Triglycerides Cholesterol LDL Cholesterol, Calc HDL Cholesterol Vitamin B12 TSH Urine Color Yellow Urine Appearance Clear Urine pH 5.5 Ur Specific [place] 1.020 Urine Protein Negative Urine Glucose (UA) Negative Urine Ketones Negative Urine Blood 1+ A Urine Nitrite Negative Urine Bilirubin Negative Urine Urobilinogen 0.2 Ur Leukocyte Esterase Negative Urine RBC 0-2 Urine WBC 0-2 Ur Squamous Epith Cells Few Urine Bacteria Few A SARS-CoV-2 (PCR) Influenza Type A (PCR) Influenza Type B (PCR) RSV (PCR) Lab Acknowledgement Test Added Test Added 07/06/24 05:52 WBC 4.42 L RBC 3.76 L Hgb 11.3 L Hct 36.2 L MCV 96 MCH 30 MCHC 31 L RDW Coeff of Adrian Plt Count 157 Neut % (Auto) Lymph % (Auto) [place] % (Auto) Eos % (Auto) Baso % (Auto) Neut # (Auto) Lymph # (Auto) [place] # (Auto) Eos # (Auto) Baso # (Auto) Abs Immat Gran (auto) Imm/Tot Granulo (auto) INR Sodium 140 Potassium 3.6 Chloride 104 Carbon Dioxide 36 H Anion Gap 0 L BUN 31 H Creatinine 0.8 Estimated Creat Clear 39.18 Estimated GFR 85 Glucose 96 Lactate Calcium 8.3 L Phosphorus 3.5 Magnesium 2.0 Iron TIBC % Saturation Total Bilirubin 0.3 Direct Bilirubin AST 27 ALT 45 Alkaline Phosphatase 108 Troponin I C-Reactive Protein 0.7 NT-Pro-B Natriuret Pep Total Protein 5.9 L Albumin 3.2 L Triglycerides 50 Cholesterol 114 LDL Cholesterol, Calc 57 HDL Cholesterol 47 Vitamin B12 TSH Urine Color Urine Appearance Urine pH Ur Specific [place] Urine Protein Urine Glucose (UA) Urine Ketones Urine Blood Urine Nitrite Urine Bilirubin Urine Urobilinogen Ur Leukocyte Esterase Urine RBC Urine WBC Ur Squamous Epith Cells Urine Bacteria SARS-CoV-2 (PCR) Influenza Type A (PCR) Influenza Type B (PCR) RSV (PCR) Lab Acknowledgement
[2024-07-06] MEDS: FUROSEMIDE 10 MG/ML inj 20 MG IVP (07:51)
[2024-07-06] MEDS: CARBOXYMETHYLCELLULOSE (REFRESH PLUS) TEARS 1 DROP EYE-BOTH (08:34)
[2024-07-06] MEDS: SODIUM CHLORIDE 0.9 % (FLUSH) 10 ML SYRINGE 5 ML IVF ×2 (08:34→22:03)
[2024-07-06] MEDS: POTASSIUM BICARB 25 MEQ EFFERVESCENT TAB PO (12:27)
[2024-07-06] MEDS: METOPROLOL TARTRATE 25 MG TABLET PO ×2 (17:55→22:04)
--- NOTE | 2024-07-06 20:20 | PC.NURSE ---
Nursing Care Hours: [id number] Pt alert and oriented, calm and cooperative. ?No c/o pain or SOB. ?Continues to have high BP without symptoms. ?Reported to hospitalist. ?Pt frequently setting off chair alarm trying to use the urinal and walking to bathroom to dump the urine. ?Moved pt closer to nurses station. ?Bilat SUELLEN socks measured and applied, pt tolerating well. ?Closed, clear fluid blister observed to R foot 3rd digit. ?Wrapped in a Band-Aid. ?ECHO done at bedside. ?Cardiac monitoring started, showing sinus arrhythmia. ?After a long walk, pt sitting in a recliner eating dinner and rfp writer observed HR at 122 bpm. ?Pt denies SOB or chest pain. ?EKG done, reading A.fib with RVR.? Reported to hospitalist. ?First dose metoprolol PO given after education provided. ?Pt resting in bed and states ?I have not felt this good since January 09!?, excited about being able to sleep in bed comfortably as swelling of abdomen and legs decreases.?
[2024-07-06] MEDS: LATANOPROST 0.005% OPHTH 1 DROP EYE-BOTH (22:33)
--- NOTE | 2024-07-06 22:59 | PM.EN ---
Chart Event Note Date Seen: 07/06/24 Chart Event Note: Patient had the onset of asymptomatic atrial fibrillation with rapid ventricular response, episode lasting roughly 2 hours. Heart rate ranged from 90-140. He was totally unaware of having this. Subsequently he converted back to normal sinus rhythm. Again he is totally unaware of the conversion episode. I did add a low-dose of metoprolol tartrate 25 mg p.o. b.i.d. after discussing with him. He was agreeable to this. I did not initiate a anticoagulant. His [id number] score is 4, placing him at an absolute stroke risk of 4.8% per year. Consider additional discussion with patient and family.
[2024-07-07 00:40] VITALS: BP 145/79; PULSE 60; RESP 16; TEMP 36.7; O2SAT 96
[2024-07-07 04:05] VITALS: BP 178/99; PULSE 60; RESP 18; TEMP 36.7; O2SAT 94
--- NOTE | 2024-07-07 06:08 | PC.NURSE ---
end of shift note: pt pleasant and cooperative with cares. uses urinal at bedside. snack of pb+j sandwich and apple juice x2 during HS. slept on/off. c/o mild abd pain that decreased after eating snack. vss on ra. pt converted from afib w/ rvr to NSR w/ BBB. uneventful night.
[2024-07-07 06:36] LABS: Basophils Absolute Auto 0.02 K/uL (0.00-0.30); Basophils Percent Auto 0.4 % (0.0-3.0); Eosinophils Absolute Auto 0.07 K/uL (0.00-0.50); Eosinophils Percent Auto 1.4 % (0.0-7.0); Hematocrit 32.1 % (37.0-53.0); Immature Granulocytes Abs Auto 0.04 K/uL (0.00-0.30); Immature Granulocytes Pct Auto 0.8 %; Mean Corpuscular HGB Conc 31 gm/dL (32-36); Mean Corpuscular Hemoglobin 30 pg (26-34); Mean Corpuscular Volume 97 fL (80-100); Monocytes Percent Auto 10.5 % (0.0-11.0); Neutrophils Absolute Auto 3.53 K/uL (1.7-7.0); Neutrophils Percent Auto 68.9 % (42.0-72.0); Platelet Count* 173 K/uL (140-440); RDW Coefficient of Variation % 14.1 % (11.5-15.5); Red Blood Count 3.31 m/uL (4.30-5.90); White Blood Count* 5.12 K/uL (4.50-11.00)
[2024-07-07 06:48] LABS: Chloride* 103 mmol/L (96-114); Potassium* 3.7 mmol/L (3.6-5.1); Sodium* 139 mmol/L (135-149)
[2024-07-07 06:49] LABS: Slide Review Reflex No
[2024-07-07 06:51] LABS: Anion Gap 2 mEq/L (7-15); Blood Urea Nitrogen* 41 mg/dL (7-30); Carbon Dioxide* 34 mmol/L (20-32); Creatinine* 0.8 mg/dL (0.5-1.5); Est. Creatinine Clearance* 38.92; Estimated Glomerular Filt Rate 85 ml/min; Glucose* 108 mg/dL (60-115)
[2024-07-07 06:52] LABS: Calcium* 8.3 mg/dL (8.4-10.6)
[2024-07-07 07:00] VITALS: BP 173/76; PULSE 57; RESP 18; TEMP 36.4; O2SAT 97
[2024-07-07] MEDS: FUROSEMIDE 10 MG/ML inj 20 MG IVP (08:39)
[2024-07-07] MEDS: POTASSIUM CHLORIDE 10 MEQ CAPSULE ER 20 MEQ PO (08:40)
[2024-07-07] MEDS: CARBOXYMETHYLCELLULOSE (REFRESH PLUS) TEARS 1 DROP EYE-BOTH (08:40)
[2024-07-07] MEDS: METOPROLOL SUCCINATE (XL) 25 MG TAB PO (08:47)
[2024-07-07 09:23] VITALS: PULSE 62
[2024-07-07 11:00] VITALS: BP 188/93; PULSE 59; O2SAT 98
--- NOTE | 2024-07-07 11:11 | PM.DS1 ---
DS: Providers Provider Date Seen: 07/07/24 Date of admission: 07/06/24 07:43 Primary care physician: Gerson Mejia MD Admitting Clinician: Zoila Carroll MD Consults: Nutrition, PT, OT Attending Physician on discharge: Zoila Carroll MD Date of Discharge: 07/07/24 DS: Diagnosis Discharge Diagnosis (1) Anasarca: Status: Acute Problem details: - etiology not yet determined. ddx: Cardiac, pulmonary, renal, hepatic, endocrine, nutritional etiologies - further testing including TSH, pre albumin, iron studies, echocardiogram; all overall reassuring. HFpEF likely cause of symptoms - 07/05: furosemide 20 mg IV now and then 20 mg IV every morning and monitor response - home on low-dose oral Lasix with a daily banana for potassium supplementation - TTE results 07/07: Final Impressions: 1. Normal LV size, mildly increased wall thickness, estimated EF of 55 - 60%. 2. Moderately enlarged left atrium. 3. Normal diastolic function. 4. Mitral valve prolapse, [id number] regurgitation. 5. Unable to estimate PA pressure due to inadequate tricuspid regurgitation jet. 6. IVC is normal caliber without respiratory variation - equivocal or mildly elevated RA pressure. (2) Hypertension: Status: Chronic Problem details: - has been off of his antihypertensive medications for at least 2 years - concern for underlying hypertensive heart disease with resultant CHF - home BPs are good per his report, but family reports chronic elevation - after discussion of risks and benefits, in addition to arrythmia, willing to start low dose Metoprolol on discharge with close f/u (3) Anemia: Status: Chronic Problem details: - 09/2018: unremarkable iron studies and chest x-ray - 04/17/2020-B12 normal at 616 - 10/11/2021-hemoglobin 13.5 - 07/05/2024 hemoglobin 11.1, iron studies c/w iron deficiency anemia (4) Cachexia: Status: Acute Problem details: - BMI 18, appetite excellent (5) Sarcopenia: Status: Acute Problem details: - PT and OT consultation (6) Arrhythmia: Status: Acute Problem details: - PVCs on EKG and telemetry, continue to follow to ensure no other underlying rhythm abnormality - (7) Atrial fibrillation with RVR: Status: Acute Problem details: - new diagnosis, noted overnight 07/06-07/07, paroxysmal. Patient asymptomatic with this - [id number] - reviewed with daughter; patient has history of noncompliance with medication and is a poor candidate for anticoagulation given history of ulcers - defer anticoagulation at this time, discharge on metoprolol for rate control DS: Summary Hospital Course Hospital Course: Cristhian was admitted to the hospital on 07/05 for anasarca, noted to have an elevated BNP and PVCs on admission EKG. He was admitted to the hospital for IV diuresis, monitoring of vital signs and electrolytes, and echocardiogram. TTE revealed HFpEF. Diuresed with Lasix, down 2+kg from admission to discharge. Potassium remained stable. Noted to have a paroxysmal episode of a fib with RVR during stay, asymptomatic. Amenable to low dose Metoprolol on discharge. Per daughter, patient has a history of perseverating on medications and poor med compliance; did not want to introduce to many new medications as he was taking no prescriptions prior to admission. He and daughter were amenable to initiation of low-dose metoprolol and low-dose Lasix once per day with close follow-up; would like to follow up with Dr. Mejia at the [facility]. Status at Discharge Functional status at discharge: independent ambulation Overall status at discharge: patient is progressing back to baseline Time Spent with Patient Time attestation: Total time spent providing and/or coordinating discharge services: Time spent: Greater than 30 minutes Specific discharge activities: medication reconciliation, education to patient and family Exam Narrative: Exam Narrative: GEN: Alert, sitting comfortably in bedside chair and having breakfast HEENT: EOMIs bilaterally, no scleral icterus CV: RRR, No concerning murmurs R: LCTA bilaterally without concerning wheezing Ext: Edema has significantly improved from admission, wearing Larry hose Neuro: Nonfocal Psych: Appropriate Const: Vital Signs, click to edit/add: Vital Signs - 24 hr 07/06/24 11:56 07/06/24 15:00 07/06/24 15:00 Temperature Pulse Rate 84 Pulse Rate [Left P ulse Oximeter] 77 Respiratory Rate 16 16 Blood Pressure [Le ft Arm] Blood Pressure [Ri ght Arm] Pulse Oximetry 98 Oxygen Delivery Me thod Room Air 07/06/24 15:00 07/06/24 20:06 07/06/24 21:55 Temperature 98.2 F Pulse Rate 73 Pulse Rate [Left P ulse Oximeter] 77 66 Respiratory Rate 16 18 Blood Pressure [Le ft Arm] 154/84 H Blood Pressure [Ri ght Arm] 158/99 H Pulse Oximetry 98 98 Oxygen Delivery Me thod Room Air Room Air 07/06/24 21:55 07/06/24 21:55 07/06/24 22:40 Temperature Pulse Rate 63 Pulse Rate [Left P ulse Oximeter] 66 Respiratory Rate 18 18 Blood Pressure [Le ft Arm] Blood Pressure [Ri ght Arm] Pulse Oximetry 98 Oxygen Delivery Me thod Room Air 07/07/24 00:40 07/07/24 04:05 07/07/24 07:00 Temperature 98.0 F 98.0 F Pulse Rate Pulse Rate [Left P ulse Oximeter] 60 60 57 L Respiratory Rate 16 18 18 Blood Pressure [Le ft Arm] 178/99 H Blood Pressure [Ri ght Arm] 145/79 H Pulse Oximetry 96 94 Oxygen Delivery Mn thod Room Air Room Air 07/07/24 07:00 07/07/24 07:00 07/07/24 09:23 Temperature 97.6 F Pulse Rate 62 Pulse Rate [Left P ulse Oximeter] 57 L Respiratory Rate 18 18 Blood Pressure [Le ft Arm] Blood Pressure [Ri ght Arm] 173/76 H Pulse Oximetry 97 97 Oxygen Delivery Mn thod Room Air Room Air DS: Data Data Completed and Pending Labs on day of discharge: Labs from last 24 hours 07/07/24 05:47 WBC 5.12 RBC 3.31 L Hgb 10.0 L Hct 32.1 L MCV 97 MCH 30 MCHC 31 L RDW Coeff of [place] 14.1 Plt Count 173 Neut % (Auto) 68.9 Lymph % (Auto) 18.0 L [place] % (Auto) 10.5 Eos % (Auto) 1.4 Baso % (Auto) 0.4 Neut # (Auto) 3.53 Lymph # (Auto) 0.90 [place] # (Auto) 0.50 Eos # (Auto) 0.07 Baso # (Auto) 0.02 Abs Immat Gran (auto) 0.04 Imm/Tot Granulo (auto) 0.8 Sodium 139 Potassium 3.7 Chloride 103 Carbon Dioxide 34 H Anion Gap 2 L BUN 41 H Creatinine 0.8 Estimated Creat Clear 38.92 Estimated GFR 85 Glucose 108 Calcium 8.3 L Discharge Plan Discharge Disposition: Home, Self-Care Date of Admission: 07/06/24 07:43 Attending Provider on Discharge: Zoila Carroll Primary Care Provider: Gerson Mejia Condition: Stable Anticipated Discharge Date/Time: 07/07/24 08:11 Discharge Medications: New furosemide 20 mg tablet 20 mg PO DAILY Qty: 30 0RF Rx Instructions: ONE tablet every morning for edema metoprolol succinate 25 mg Tablet Extended Release 24 Hr 25 mg PO DAILY Qty: 30 0RF Continued cholecalciferol (vitamin D3) 50 mcg (2,000 unit) tablet 2,000 unit PO DAILY latanoprost 0.005 % drops 1 drp ophthalmic (eye-left) QPM Blink Tears 0.25 % drops 1 drp ophthalmic (eye) DAILY Complete Multivitamin-Mineral 18-400 mg-mcg tablet 1 tab PO DAILY Discharge Orders: Discharge Order (Routine); Ordered 07/07/24 Ordered By: Zoila Carroll Patient Education: Metoprolol (By mouth), Furosemide (By mouth), Edema (DC) Additional Instructions: Two new medications are at the pharmacy: 1. METOPROLOL: This is ONCE per day and helps keep your heart rhythm appropriate. It's okay if your Heart Rate is on the low side if you are feeling okay. 2. FUROSEMIDE: This is ONCE per day and helps keep your swelling down. Good idea to wear the tight stockings during the day and keep your legs elevated in the recliner while seated. You should eat one banana/day for your potassium and overall health. See Dr. Mejia next week as scheduled to discuss your new medications and general health. Activity Level: No strenuous activity Discharge Diet: Regular Follow Up Appointments: Gerson Mejia MD [Primary Care Provider] - 07/10/24 2:45 pm ([facility] for follow-up.) Forms: [employer] Info Instructions
--- NOTE | 2024-07-07 14:50 | PC.NURSE ---
Nursing Care Hours: [id number] Pt this shift calm and cooperative, alert and oriented. No c/o pain. HTN continues without symptoms. Pt tele shows NSR. Pt agreeable about medications and understands discharge plane. Discharge also went over with son and daughter in the room. Emt/Paramedic discussed with pt and family about looking into a pulse oximeter that can monitor HR in real time. Talked about tachycardia and fluctuations in numbers with A.fib. Discussed SS of A.fib and what should be followed up. IV removed. Pt wheeled out to family vehicle. Family notified that pt walker and cane are at pt home in basement and will need assistance in bringing that up for pt use.
[2024-07-08 23:47] LABS: Prealbumin 11.9 mg/dL (20.0-40.0)
== END 2024-07-07 13:18 | disposition home or self-care (01) | DRG 292 ==
LOC: ED 12:59 → MEDSURG 13:15
PROVIDERS: Internal Medicine; Admitting Provider Family Medicine; Emergency Provider Family Medicine; PCP Family Medicine; Visit Provider Family Medicine
DX: I11.0 Hypertensive heart disease with heart failure (principal); R64 Cachexia; Z68.1 Body mass index [BMI] 19.9 or less, adult; R60.1 Generalized edema; I50.30 Unspecified diastolic (congestive) heart failure; I48.0 Paroxysmal atrial fibrillation; I49.3 Ventricular premature depolarization; Z91.148 Patient's other noncompliance with medication regimen for other reason; R47.81 Slurred speech; D64.9 Anemia, unspecified; M62.84 Sarcopenia; I34.1 Nonrheumatic mitral (valve) prolapse; I34.0 Nonrheumatic mitral (valve) insufficiency; Z87.891 Personal history of nicotine dependence
CPT/HCPCS: 36415; 71260; 74177; 80048; 80053; 80061; 80076; 81001; 82607; 83540; 83550; 83605; 83735; 83880; 84100; 84134; 84443; 84484; 85025; 85027; 85610; 86140; 87086; 87631; 93005; 93306; 94761; 97112; 97116; 97162; 97165; 97535; 99284; 99285; G0378; A9270; J1940; Q9967